=== PATIENT | female | born 1950 | race Caucasian/White ===

== ENCOUNTER 2022-03-05 09:41 | Inpatient (IN) ==
[2022-03-05] MEDS ORDERED: MoRPHine SULFATE 4 MG/ML 1 ML CARP\\VIAL IV PRN (09:47)
[2022-03-05] MEDS ORDERED: MoRPHine SULFATE 2 MG/ML CARP IV PRN ×2 (09:47→14:43)
--- NOTE | 2022-03-05 09:51 | Emergency Department Note ---
Impression & Plan Closed right hip fracture, Fall, Blood glucose elevated ED Provider Note NAME: ARTIE RENTERIA AGE: 71 SEX: F : 1950 ARRIVES VIA: Ambulance INFORMANT: Patient ED PROVIDER(S): Stanley Lopez DO CHIEF COMPLAINT: right hip pain HPI: Patient is a 71-year-old female who presents to the ER following a mechanical fall. She was up here visiting for a wedding. She was packing the car and tripped over uneven pavement and fell onto her right side. She did not hit her head or neck. She did not lose consciousness. She denies any chest pain, belly pain, or any other extremity pain other than the right hip. No tingling or numbness. Pain is a 6 out of 10. Significantly worsened with movement. ROS: See above HPI for pertinent positives & negatives. A total of 10 systems reviewed and were otherwise negative. PAST MEDICAL HISTORY:See Below PAST SURGICAL HISTORY:See Below FAMILY HISTORY:See Below SOCIAL HISTORY:See Below HOME MEDICATIONS:See Below ALLERGIES:See Below VITALS:See Below PHYSICAL EXAMINATION: GENERAL: alert, well appearing, well nourished, no distress, non-toxic HEAD: normal cephalic, atraumatic EYE EXAM: normal conjunctiva, PERRL and EOM's grossly intact OROPHARYNX: no exudate, no erythema, lips, buccal mucosa, and tongue normal and mucous membranes are moist NECK: supple, no nuchal rigidity, no adenopathy, non-tender CHEST: stable to compression anteriorly and posteriorly LUNGS: clear to auscultation. Normal chest wall mechanics HEART: no murmurs, S1 normal and S2 normal ABDOMEN: abdomen soft, non-tender, normo-active bowel sounds, no masses, no rebound or guarding. PELVIS: stable to compression anteriorly and posteriorly BACK: Back is symmetrical on inspection and there is no deformity, no midline tenderness, no CVA tenderness. UPPER EXTREMITIES: full active and passive range of motion of all joints without tenderness to palpation LOWER EXTREMITIES: No tenderness throughout palpation of the entire left lower extremity and full range of motion is intact. Right lower extremity DP and PT 2 out of 4. No tenderness over the ankle distal mid or proximal tib-fib. No tenderness throughout the knee. Does appear to be shortened and slightly externally rotated. No tenderness throughout the distal or mid femur. Tenderness over the proximal femur/pelvis. NEURO EXAM: Normal sensorium, cranial nerves II-XII grossly intact, normal speech, no gross weakness of arms. GCS: 15. MEDICAL DECISION MAKING: Patient is a 71-year-old female who presents ER following mechanical fall onto her right hip. She did not hit her head or neck. She denies any blood thinners. IV was established blood work was obtained. Labs show mild leukocytosis 11.6 thousand. No significant anemia. INR was unremarkable. BMP with a slightly elevated BUN and glucose. LFTs bilirubin was clean. UA was clean. Covid negative. X-rays of the hip and pelvis show right subcapital fracture. [facility] orthopedics. [facility]. Patient was given IV narcotics while in the ER. Triage Nursing notes reviewed. Limited review of prior medical records performed Vital Signs: reviewed and remarkable for no significant abnormalities Differential diagnosis: Differential diagnoses include major intracranial, cervical, spinal, thoracic, abdominal, pelvic and neurologic injury. Fracture, contusion, sprain, strain, laceration, abrasions included as well. ER treatment provided: See below Diagnostics interpreted by me: ECG: none Cardiac Monitoring: An order was placed for continuous cardiac monitoring. The monitor shows a rate of 82 with sinus rhythm. Laboratory studies: As stated above and show below. Imaging studies: X-rays the pelvis/right hip show hip fracture Consultation(s): Discussed with Linda from [facility] service for admission Procedures: none Critical Care: None Past Med/Surg History Medical History (Updated 03/05/22 @ 14:41 by Stanley Lopez DO) Closed right hip fracture History of DVT (deep vein thrombosis) HTN, goal below 140/90 Hyperlipidemia LDL goal <100 Obesity (BMI 30-39.9) Type 2 diabetes, HbA1c goal < 7% Surgical History (Updated 03/05/22 @ 13:03 by Augusta Daniel PA-C) H/O cataract removal with insertion of prosthetic lens Hx of tonsillectomy S/P breast biopsy S/P cardiac cath S/P colonoscopy Status post vein stripping Family History (Updated 03/05/22 @ 13:05 by Augusta Daniel PA-C) Father Coronary heart disease Stroke Mother Heart failure Social History Smoking Status: Never smoker Hx Alcohol Use: Yes Alcohol type: wine Hx Substance Use: No Preferred Language: Yoruba Communication Ability: Effective College Or University Business Manager Required: No Beliefs That Will Affect Care: None Current Living Situation: Alone Current Living Situation Comment: condo building Other Information That Helps Us Care for You: No Feels Safe at Home: Yes Safety Concerns: Feels Safe At This Time Assistive Devices: Glasses Allergies Allergies Allergy/AdvReac Type Severity Reaction Status Date / Time Penicillins Allergy Intermediate Hives Unverified 03/05/22 11:59 Home Meds Home Medications Medication Instructions Recorded Confirmed Lactobacillus acidophilus 1.5 mg 1.5 mg PO DAILY 03/05/22 03/05/22 (250 million cell) capsule (Probiotic Acidophilus) acetaminophen 650 mg 650 mg PO Q8H 03/05/22 03/05/22 tablet,extended release aspirin 81 mg tablet,delayed 81 mg PO HS 03/05/22 03/05/22 release calcium carb 300 mg-D3 800 1 tab PO QAM 03/05/22 03/05/22 unit-mag ox 25 mg-picture copyist 0.5 mg-vernell-Zn tablet (Caltrate + D3 Plus Minerals) colesevelam 625 mg tablet (WelChol) 625 mg PO QID 03/05/22 03/05/22 diltiazem HCl 240 mg 240 mg PO QAM 03/05/22 03/05/22 capsule,extended release 24 hr glimepiride 4 mg tablet 4 mg PO QAM 03/05/22 03/05/22 hydralazine 50 mg tablet 50 mg PO QID 03/05/22 03/05/22 losartan 50 mg-hydrochlorothiazide 1 tab PO QAM 03/05/22 03/05/22 12.5 mg tablet metformin 500 mg tablet,extended See Rx Instructions .ROUTE .COMPLEX 03/05/22 03/05/22 release 24 hr dpvkehqb-rhs-pyhdq acid 0.4 1 tab PO QAM 03/05/22 03/05/22 mg-lycopene 300 mcg-lutein 250 mcg tablet (Centrum Silver) omega-3 fatty acids 1 cap PO DAILY 03/05/22 03/05/22 pyridoxine (vitamin B6) 100 mg 100 mg PO QAM 03/05/22 03/05/22 tablet (Vitamin B-6) rosuvastatin 5 mg tablet 5 mg PO QAM 03/05/22 03/05/22 semaglutide 3 mg tablet (Rybelsus) 3 mg PO DAILYBB 03/05/22 03/05/22 vitamin B complex 1 tab PO QA 03/05/22 03/05/22 Results & Data (ED) Vital Signs Vital Signs - 24 hr 03/05/22 09:32 03/05/22 11:29 Temperature 36.8 C Temperature Source Oral Pulse Rate 78 Pulse Rate [Left] 93 H Pulse Rhythm Regular Pulse Rhythm [Left] Regular Pulse Strength Normal Pulse Strength [Left] Normal Respiratory Rate 18 18 Respiratory Effort / Characteristics Spontaneous Spontaneous Respiratory Depth Deep Normal Blood Pressure 183/90 H Blood Pressure [Left Arm] 128/90 Blood Pressure Mean 121 Blood Pressure Mean [Left Arm] 102 Blood Pressure Position Lying Blood Pressure Position [Left Arm] Lying Pulse Oximetry 98 98 Oxygen Delivery Method Room Air Room Air Sepsis Recent Fever Within 48 Hours No Sepsis New/Unexplained Change in Mental Status N/A Sepsis Action Taken by Nursing No Action Required Laboratory Data Result diagrams: 03/05/22 10:10 03/05/22 10:10 Lab Results 03/05/22 03/05/22 03/05/22 Range/Units 10:10 10:10 10:10 WBC 11.67 H (4.8-10.8) K/uL RBC 4.96 (4.2-5.4) M/uL Hgb 14.4 (12.0-16.0) g/dL Hct 43.0 (37-47) % MCV 86.7 (80-100) fL MCH 29.0 (25-34) pg MCHC 33.5 (32-36) g/dL RDW Std Deviation 43.4 (36.4-46.3) fL RDW Coeff of Salazar 13.8 (11.5-14.5) % Plt Count 305 (130-400) K/uL MPV 8.6 (7.4-10.4) fL Immature Gran % (Auto) 0.8 % Neut % (Auto) 81.1 % Lymph % (Auto) 11.0 % [place] % (Auto) 6.5 % Eos % (Auto) 0.4 % Baso % (Auto) 0.2 % Neut # (Auto) 9.47 H (1.4-6.5) K/uL Lymph # (Auto) 1.28 (1.2-3.4) K/uL [place] # (Auto) 0.76 H (0.11-0.59) K/uL Eos # (Auto) 0.05 (0-0.5) K/uL Baso # (Auto) 0.02 (0-0.2) K/uL Immature Gran # (Auto) 0.09 H (0.00-0.02) K/uL PT 10.9 (9.0-12.0) Seconds INR 1.0 (0.9-1.1) APTT 24.5 (21.0-31.0) Seconds PTT Ratio 0.9 Sodium 138 (136-145) mmol/L Potassium 3.6 (3.5-5.1) mmol/L Chloride 104 (98-107) mmol/L Carbon Dioxide 22 (21-32) mmol/L Anion Gap 12 H (3-11) BUN 25 H (6-23) mg/dl Creatinine 0.59 L (0.6-1.2) mg/dl Est Cr Clr Drug Dosing 96.1 ml/min Est GFR ( Amer) 107.6 ml/min Est GFR (Non-Af Amer) 92.9 ml/min BUN/Creatinine Ratio 42.4 H (10-20) Glucose 187 H (70-99(Fasting)) mg/dl Calcium 9.8 (8.5-10.1) mg/dl Total Bilirubin 0.5 (0.2-1.0) mg/dl AST 28 (13-39) U/L ALT 23 (7-52) U/L Alkaline Phosphatase 68 (34-104) U/L Total Protein 7.7 (6.0-8.3) gm/dl Albumin 4.8 (3.4-5.0) gm/dl Globulin 2.9 (2.5-4.0) gm/dl Albumin/Globulin Ratio 1.7 (0.9-2) Urine Color Urine Appearance (Clear) Urine pH (4.5-7.5) Ur Specific [place] (1.000-1.030) Urine Protein (Negative) Urine Glucose (UA) (Negative) Urine Ketones (Negative) Urine Blood (Negative) Urine Nitrite (Negative) Urine Bilirubin (Negative) Urine Urobilinogen (Negative) Ur Leukocyte Esterase (Negative) 03/05/22 Range/Units 11:45 WBC (4.8-10.8) K/uL RBC (4.2-5.4) M/uL Hgb (12.0-16.0) g/dL Hct (37-47) % MCV (80-100) fL MCH (25-34) pg MCHC (32-36) g/dL RDW Std Deviation (36.4-46.3) fL RDW Coeff of Salazar (11.5-14.5) % Plt Count (130-400) K/uL MPV (7.4-10.4) fL Immature Gran % (Auto) % Neut % (Auto) % Lymph % (Auto) % [place] % (Auto) % Eos % (Auto) % Baso % (Auto) % Neut # (Auto) (1.4-6.5) K/uL Lymph # (Auto) (1.2-3.4) K/uL [place] # (Auto) (0.11-0.59) K/uL Eos # (Auto) (0-0.5) K/uL Baso # (Auto) (0-0.2) K/uL Immature Gran # (Auto) (0.00-0.02) K/uL PT (9.0-12.0) Seconds INR (0.9-1.1) APTT (21.0-31.0) Seconds PTT Ratio Sodium (136-145) mmol/L Potassium (3.5-5.1) mmol/L Chloride (98-107) mmol/L Carbon Dioxide (21-32) mmol/L Anion Gap (3-11) BUN (6-23) mg/dl Creatinine (0.6-1.2) mg/dl Est Cr Clr Drug Dosing ml/min Est GFR ( Amer) ml/min Est GFR (Non-Af Amer) ml/min BUN/Creatinine Ratio (10-20) Glucose (70-99(Fasting)) mg/dl Calcium (8.5-10.1) mg/dl Total Bilirubin (0.2-1.0) mg/dl AST (13-39) U/L ALT (7-52) U/L Alkaline Phosphatase (34-104) U/L Total Protein (6.0-8.3) gm/dl Albumin (3.4-5.0) gm/dl Globulin (2.5-4.0) gm/dl Albumin/Globulin Ratio (0.9-2) Urine Color Yellow Urine Appearance Clear (Clear) Urine pH 5.5 (4.5-7.5) Ur Specific [place] 1.017 (1.000-1.030) Urine Protein Negative (Negative) Urine Glucose (UA) Negative (Negative) Urine Ketones 1+ H (Negative) Urine Blood Negative (Negative) Urine Nitrite Negative (Negative) Urine Bilirubin Negative (Negative) Urine Urobilinogen Negative (Negative) Ur Leukocyte Esterase Negative (Negative) Imaging Data Radiologist's Impression: Hip/Pelvis X-Ray 03/05/22 09:47 SERIAL VIEW PELVIS STUDY: 2 VIEWS RIGHT HIP CLINICAL HISTORY: Fall with right hip injury. FINDINGS: An AP portable view of the pelvis with AP and cross table lateral views of the right hip are obtained. No prior studies are available for comparison at the time of dictation. The skeletal structures are osteopenic. There is an impacted and mildly displaced subcapital fracture of the right proximal femur. No fracture is seen involving the left hip or the bony pelvis. Moderate joint space narrowing and arthritic change is seen in the hips. Degenerative sclerosis is noted in the sacroiliac joints. Advanced lumbosacral spondylosis is partially visualized. Soft tissue edema overlies the right hip. There is atherosclerotic calcification of the femoral arteries. IMPRESSION: Impacted and mildly displaced subcapital fracture of the right femur. Electronically signed by: Juan Alberto Garcia M.D. 03/05/2022 11:25 AM Discharge Plan Visit Data Chief Complaint: Fall ED Provider: Stanley Lopez Discharge Problem: Closed right hip fracture, Fall, Blood glucose elevated Patient Disposition: Admitted As Inpatient Discharge Instructions Interventions: ED Discharge Assessment Last Done: 03/05/22 13:41
[2022-03-05 10:29] LABS: Basophils # (auto) 0.02 K/uL (0-0.2); Basophils % (auto) 0.2 %; Eosinophils # (auto) 0.05 K/uL (0-0.5); Eosinophils % (auto) 0.4 %; Hemoglobin 14.4 g/dL (12.0-16.0); Immature Granulocytes # (auto) 0.09 K/uL (0.00-0.02); Immature Granulocytes % (auto) 0.8 %; Lymphocytes # (auto) 1.28 K/uL (1.2-3.4); Mean Corpuscular Hgb Conc 33.5 g/dL (32-36); Mean Corpuscular Volume 86.7 fL (80-100); Mean Platelet Volume 8.6 fL (7.4-10.4); Monocytes # (auto) 0.76 K/uL (0.11-0.59); Monocytes % (auto) 6.5 %; Neutrophils # (auto) 9.47 K/uL (1.4-6.5); Neutrophils % (auto) 81.1 %; Platelet Count 305 K/uL (130-400); RDW Coefficient of Variation 13.8 % (11.5-14.5); RDW Standard Deviation 43.4 fL (36.4-46.3); Red Blood Count 4.96 M/uL (4.2-5.4); White Blood Count 11.67 K/uL (4.8-10.8)
[2022-03-05 10:41] LABS: Partial Thromboplastin Ratio 0.9; Partial Thromboplastin Time 24.5 Seconds (21.0-31.0); Prothrombin Time 10.9 Seconds (9.0-12.0)
[2022-03-05 10:57] LABS: Albumin Globulin Ratio 1.7 (0.9-2); Albumin Level 4.8 gm/dl (3.4-5.0); BUN Creatinine Ratio 42.4 (10-20); Bilirubin,Total 0.5 mg/dl (0.2-1.0); Calcium 9.8 mg/dl (8.5-10.1); Creatinine Clr Calc Pharmacy 96.1 ml/min; Est GFR (African American) 107.6 ml/min; Est GFR (Non-African American) 92.9 ml/min; Globulin 2.9 gm/dl (2.5-4.0); Potassium 3.6 mmol/L (3.5-5.1); Total Protein 7.7 gm/dl (6.0-8.3)
--- NOTE | 2022-03-05 11:27 | XRay Report ---
SERIAL VIEW PELVIS STUDY: 2 VIEWS RIGHT HIP CLINICAL HISTORY: Fall with right hip injury. FINDINGS: An AP portable view of the pelvis with AP and cross table lateral views of the right hip ar e obtained. No prior studies are available for comparison at the time of dictation. The skeletal stru ctures are osteopenic. There is an impacted and mildly displaced subcapital fracture of the right pr oximal femur. No fracture is seen involving the left hip or the bony pelvis. Moderate joint space giovani rowing and arthritic change is seen in the hips. Degenerative sclerosis is noted in the sacroiliac alonso ints. Advanced lumbosacral spondylosis is partially visualized. Soft tissue edema overlies the right hip. There is atherosclerotic calcification of the femoral arteries. IMPRESSION: Impacted and mildly displaced subcapital fracture of the right femur. Electronically signed by: Juan Alberto Garcia M.D. 03/05/2022 11:25 AM
[2022-03-05 11:54] LABS: Appearance Urine Clear (Clear); Bilirubin Urine Negative (Negative); Blood Urine Negative (Negative); Color Urine Yellow; Glucose Urine UA Negative (Negative); Ketones Urine 1+ (Negative); Leukocyte Esterase Urine Negative (Negative); Nitrite Urine Negative (Negative); Protein Urine Negative (Negative); Specific Gravity Urine 1.017 (1.000-1.030); Urobilinogen Urine Negative (Negative); pH Urine 5.5 (4.5-7.5)
--- NOTE | 2022-03-05 13:09 | History & Physical Report ---
Date of Service March 05, 2022 Assessment & Plan (1) Closed right hip fracture: Plan: Patient with acute right hip fracture. XR completed showed impacted and mildly displaced right hip fx Admit to Med/Surg Consult Orthopedics Strict bedrest pending Orthopedic consult NPO for now pending eval Fall precautions Will need PT/OT, but pending surgical decision Pain management: Tylenol PRN mild pain Oxycodone 5 mg PO PRN moderate pain Morphine 2 mg IV PRN severe pain Zofran PRN nausea Bowel regimen PRN Monitor vitals closely. COVID Negative MRSA nasal swab (2) HTN, goal below 140/90: Plan: Continue home BP medications Monitor closely. (3) Type 2 diabetes, HbA1c goal < 7%: Plan: Hold PO DM meds Start insulin baseline and sliding scale Glucose checks Q4h for now due to NPO/surgical planning. DM diet Last A1C 8.3 02/03/2022 (4) Hyperlipidemia LDL goal <100: Plan: Continue rosuvastatin (5) Obesity (BMI 30-39.9): (6) DVT prophylaxis: Plan: SQ Heparin 5,000 Q8h pending surgical plan. Hold prior to surgery per Ortho plans SCDs Plan: I saw and examined the patient at bedside. I reviewed the chart and discussed t he case with Augusta SAEZ and agree with her documentation. In summary, this is a 71 year old female who presented to the ED today after a mechanical fall sustaining acute right hip fracture. States the pain medicine in ED helped but now hurting again during transfer to the floor. Afebrile, hemodynamically stable. AAOx3, eating lunch. Chest clear. Hear sounds normal. Abdomen normal. Extremities with no edema, no ecchymoses. Admit to inpatient, bed rest, ortho consult for surgery, pain management, bowel regimen. NPO after midnight for surgery tomorrow. Sc heparin for DVT prophylaxis until after midnight. Maintenance fluid in am. PT eval after surgery. Will need rehab. Rest per the note above. History of Present Illness Chief Complaint: Right hip fracture Primary Care Provider: NO PCP Patient is a 71 yo female with PMHx of DM type 2, HTN, Hyperlipidemia who presented to the ED via ambulance for concern of fall onto right hip this morning. She is from the [facility] but is in town for a wedding. She was packing the car when she stepped off of an uneven surface and fell onto her right hip. She was unable to stand/walk after the episode. She was transported to the ED and has since had XRay of the right hip which showed impacted and slightly displaced femur fx. This image was reviewed by me today. She was initially dizzy immediately after her fall, but no further dizziness. No LOC. No head injury. She caught herself slightly with her right arm but no injury or bruising. Right hip Pain is 5/10 now after dose of Morphine in the ED. She is comfortable on exam. She did take some of her medications this morning, but she did not take her glimepiride. She has not eaten yet today. Labs reviewed as well. Renal function stable. WBC count slightly elevated. Glucose 187. BP high on admission, improved with pain control. The patient's outpatient medical record was reviewed. PMHx, social hx, family hx, and surgical hx updated. Allergies Allergy/AdvReac Type Severity Reaction Status Date / Time Penicillins Allergy Intermediate Hives Verified 03/05/22 14:41 Home Medications Medication Instructions Recorded Confirmed Type Lactobacillus acidophilus 1.5 mg 1.5 mg PO DAILY 03/05/22 03/05/22 History (250 million cell) capsule (Probiotic Acidophilus) acetaminophen 650 mg 650 mg PO Q8H 03/05/22 03/05/22 History tablet,extended release aspirin 81 mg tablet,delayed 81 mg PO HS 03/05/22 03/05/22 History release calcium carb 300 mg-D3 800 1 tab PO QAM 03/05/22 03/05/22 History unit-mag ox 25 mg-copper roller handler printing 0.5 mg-vernell-Zn tablet (Caltrate + D3 Plus Minerals) colesevelam 625 mg tablet (WelChol) 625 mg PO QID 03/05/22 03/05/22 History diltiazem HCl 240 mg 240 mg PO QAM 03/05/22 03/05/22 History capsule,extended release 24 hr glimepiride 4 mg tablet 4 mg PO QAM 03/05/22 03/05/22 History hydralazine 50 mg tablet 50 mg PO QID 03/05/22 03/05/22 History losartan 50 mg-hydrochlorothiazide 1 tab PO QAM 03/05/22 03/05/22 History 12.5 mg tablet metformin 500 mg tablet,extended See Rx Instructions .ROUTE .COMPLEX 03/05/22 03/05/22 History release 24 hr cfteqrtf-ooh-vszws acid 0.4 1 tab PO QAM 03/05/22 03/05/22 History mg-lycopene 300 mcg-lutein 250 mcg tablet (Centrum Silver) omega-3 fatty acids 1 cap PO DAILY 03/05/22 03/05/22 History pyridoxine (vitamin B6) 100 mg 100 mg PO QAM 03/05/22 03/05/22 History tablet (Vitamin B-6) rosuvastatin 5 mg tablet 5 mg PO QAM 03/05/22 03/05/22 History semaglutide 3 mg tablet (Rybelsus) 3 mg PO DAILYBB 03/05/22 03/05/22 History vitamin B complex 1 tab PO QAM 03/05/22 03/05/22 History Past Med/Surg History Medical History (Updated 03/05/22 @ 14:41 by Stanley Lopez DO) Closed right hip fracture History of DVT (deep vein thrombosis) HTN, goal below 140/90 Hyperlipidemia LDL goal <100 Obesity (BMI 30-39.9) Type 2 diabetes, HbA1c goal < 7% Surgical History (Updated 03/05/22 @ 13:03 by Augusta Daniel PA-C) H/O cataract removal with insertion of prosthetic lens Hx of tonsillectomy S/P breast biopsy S/P cardiac cath S/P colonoscopy Status post vein stripping Family History (Updated 03/05/22 @ 13:05 by Augusta Daniel PA-C) Father Coronary heart disease Stroke Mother Heart failure Social History Smoking Status: Never smoker Hx Alcohol Use: Yes Alcohol type: wine Hx Substance Use: No Preferred Language: Frisian Communication Ability: Effective Ring Conductor Required: No Beliefs That Will Affect Care: None Current Living Situation: Alone Current Living Situation Comment: condo building Other Information That Helps Us Care for You: No Feels Safe at Home: Yes Safety Concerns: Feels Safe At This Time Assistive Devices: Glasses Review of Systems Review of Systems: All other systems reviewed and negative other than mentioned in HPI Physical Exam Constitutional: WD/WN, vitals as above comfortable; no acute distress Eyes: PERRL, conjunctivae normal, anicteric sclerae ENMT: external ear and nose normal, oropharynx normal Neck: trachea midline, no thyromegaly Respiratory: normal respiratory effort, lungs clear to auscultation Cardiovascular: Rate/Rhythm: regular rate and regular rhythm Heart Sounds: normal S1 and normal S2; no murmur Extremities: normal capillary refill (Pulses 2+ DP and 1+ PT B/L) and + edema (trace edema RLE) Gastrointestinal (Abdomen): normal bowel sounds, soft, nontender, no hepatosplenomegaly Skin: no rashes, warm and dry Results & Data Results & Data ([facility]) Vital Signs (Past 12 Hours) Vital Signs Temp Pulse Pulse Resp BP BP Pulse Ox 03/05/22 11:29 93 H 18 128/90 98 03/05/22 09:32 36.8 C 78 18 183/90 H 98 Laboratory Results Laboratory Results - last 24 hr 03/05/22 03/05/22 03/05/22 10:10 10:10 10:10 WBC 11.67 H RBC 4.96 Hgb 14.4 Hct 43.0 MCV 86.7 MCH 29.0 MCHC 33.5 RDW Std Deviation 43.4 RDW Coeff of Salazar 13.8 Plt Count 305 MPV 8.6 Immature Gran % (Auto) 0.8 Neut % (Auto) 81.1 Lymph % (Auto) 11.0 [place] % (Auto) 6.5 Eos % (Auto) 0.4 Baso % (Auto) 0.2 Neut # (Auto) 9.47 H Lymph # (Auto) 1.28 [place] # (Auto) 0.76 H Eos # (Auto) 0.05 Baso # (Auto) 0.02 Immature Gran # (Auto) 0.09 H PT 10.9 INR 1.0 APTT 24.5 PTT Ratio 0.9 Sodium 138 Potassium 3.6 Chloride 104 Carbon Dioxide 22 Anion Gap 12 H BUN 25 H Creatinine 0.59 L Est Cr Clr Drug Dosing 96.1 Est GFR ( Amer) 107.6 Est GFR (Non-Af Amer) 92.9 BUN/Creatinine Ratio 42.4 H Glucose 187 H Calcium 9.8 Total Bilirubin 0.5 AST 28 ALT 23 Alkaline Phosphatase 68 Total Protein 7.7 Albumin 4.8 Globulin 2.9 Albumin/Globulin Ratio 1.7 Urine Color Urine Appearance Urine pH Ur Specific [place] Urine Protein Urine Glucose (UA) Urine Ketones Urine Blood Urine Nitrite Urine Bilirubin Urine Urobilinogen Ur Leukocyte Esterase SARS-CoV-2, RNA, NAAT 03/05/22 03/05/22 11:45 Unknown WBC RBC Hgb Hct MCV MCH MCHC RDW Std Deviation RDW Coeff of Salazar Plt Count MPV Immature Gran % (Auto) Neut % (Auto) Lymph % (Auto) [place] % (Auto) Eos % (Auto) Baso % (Auto) Neut # (Auto) Lymph # (Auto) [place] # (Auto) Eos # (Auto) Baso # (Auto) Immature Gran # (Auto) PT INR APTT PTT Ratio Sodium Potassium Chloride Carbon Dioxide Anion Gap BUN Creatinine Est Cr Clr Drug Dosing Est GFR ( Amer) Est GFR (Non-Af Amer) BUN/Creatinine Ratio Glucose Calcium Total Bilirubin AST ALT Alkaline Phosphatase Total Protein Albumin Globulin Albumin/Globulin Ratio Urine Color Yellow Urine Appearance Clear Urine pH 5.5 Ur Specific [place] 1.017 Urine Protein Negative Urine Glucose (UA) Negative Urine Ketones 1+ H Urine Blood Negative Urine Nitrite Negative Urine Bilirubin Negative Urine Urobilinogen Negative Ur Leukocyte Esterase Negative SARS-CoV-2, RNA, NAAT NEGATIVE Diagnostic Findings RIGHT HIP XR: IMPRESSION: Impacted and mildly displaced subcapital fracture of the right femur. Code Status & VTE Plan VTE Prophylaxis Plan VTE Prophylaxis will be ordered: Yes
[2022-03-05] MEDS ORDERED: MAGNESIUM HYDROXIDE SUSP 30 ML UDC PO PRN (14:10)
[2022-03-05] MEDS ORDERED: GLUCOSE 40% GEL 15 GM TUBE PO PRN (14:10)
[2022-03-05] MEDS ORDERED: ACETAMINOPHEN 325 MG TAB PO PRN (14:10)
[2022-03-05] MEDS ORDERED: POLYETHYLENE (MIRALAX) 17 GM PACK PO PRN (14:10)
[2022-03-05] MEDS ORDERED: CARBOHYDRATES FOR HYPOGLYCEMIA PO PRN (14:10)
[2022-03-05] MEDS ORDERED: NALOXONE HCL 0.4 MG/1 ML VIAL/CARP IV PRN (14:10)
[2022-03-05] MEDS ORDERED: GLUCAGON FOR INJ 1 MG VIAL SQ PRN (14:10)
[2022-03-05] MEDS ORDERED: GLUCOSE 10 TABS/TUBE PO PRN (14:10)
[2022-03-05] MEDS ORDERED: ONDANSETRON INJ 2 MG/ML 2 ML VIAL IV PRN (14:10)
[2022-03-05] MEDS ORDERED: bisacodyL 10 MG SUPP PR PRN (14:10)
[2022-03-05] MEDS ORDERED: DEXTROSE 50% 50 ML SYRINGE IV PRN (14:10)
[2022-03-05] MEDS ORDERED: DC ALL PREVIOUSLY ORDERED DIABETES MEDS ONE (14:10)
[2022-03-05] MEDS ORDERED: MoRPHine SULFATE IR 15 MG TAB (IMMEDIATE RELEASE) PO PRN (14:10)
[2022-03-05] MEDS ORDERED: oxyCODONE HCL IR 5 MG TAB (IMMEDIATE RELEASE) PO PRN (14:35)
[2022-03-05] MEDS: HEPARIN SOD 5,000 UNIT/0.5 ML VIAL SQ SCH ×2 (14:42→21:24)
[2022-03-05] MEDS: oxyCODONE HCL IR 5 MG TAB (IMMEDIATE RELEASE) PO PRN ×2 (14:47→22:49)
[2022-03-05] MEDS: hydrALAZINE TAB 50 MG TAB PO SCH ×3 (15:46→21:24)
[2022-03-05] MEDS ORDERED: MoRPHine SULFATE 2 MG/ML CARP IV STA (15:53)
--- NOTE | 2022-03-05 16:39 | Anesthesiology Consultation ---
Date of Service March 05, 2022 Assessment & Plan (1) Encounter for pre-operative examination: Chart Review Chart Review: Acceptable Risk for Surgery and Patient NOT seen in Pre Admission Testing Consults Requested none History Height/Weight Height: 5 ft 4 in Weight: 95.254 kg Allergies Allergy/AdvReac Type Severity Reaction Status Date / Time Penicillins Allergy Intermediate Hives Verified 03/05/22 14:41 Medications Home Medications Medication Instructions Recorded Confirmed Last Taken Lactobacillus acidophilus 1.5 mg 1.5 mg PO DAILY 03/05/22 03/05/22 Unknown (250 million cell) capsule (Probiotic Acidophilus) acetaminophen 650 mg 650 mg PO Q8H 03/05/22 03/05/22 03/05/22 07:30 tablet,extended release 650 mg aspirin 81 mg tablet,delayed 81 mg PO HS 03/05/22 03/05/22 03/04/22 release calcium carb 300 mg-D3 800 1 tab PO QAM 03/05/22 03/05/22 03/04/22 unit-mag ox 25 mg-manager copy 0.5 mg-vernell-Zn tablet (Caltrate + D3 Plus Minerals) colesevelam 625 mg tablet (WelChol) 625 mg PO QID 03/05/22 03/05/22 03/04/22 diltiazem HCl 240 mg 240 mg PO QAM 03/05/22 03/05/22 03/05/22 capsule,extended release 24 hr glimepiride 4 mg tablet 4 mg PO QAM 03/05/22 03/05/22 03/04/22 hydralazine 50 mg tablet 50 mg PO QID 03/05/22 03/05/22 03/05/22 losartan 50 mg-hydrochlorothiazide 1 tab PO QAM 03/05/22 03/05/22 03/04/22 12.5 mg tablet metformin 500 mg tablet,extended See Rx Instructions .ROUTE .COMPLEX 03/05/22 03/05/22 03/05/22 release 24 hr lqusrdvb-acq-lajpw acid 0.4 1 tab PO QAM 03/05/22 03/05/22 03/04/22 mg-lycopene 300 mcg-lutein 250 mcg tablet (Centrum Silver) omega-3 fatty acids 1 cap PO DAILY 03/05/22 03/05/22 Unknown pyridoxine (vitamin B6) 100 mg 100 mg PO QAM 03/05/22 03/05/22 03/05/22 tablet (Vitamin B-6) rosuvastatin 5 mg tablet 5 mg PO QAM 03/05/22 03/05/22 03/04/22 semaglutide 3 mg tablet (Rybelsus) 3 mg PO DAILYBB 03/05/22 03/05/22 03/05/22 06:00 vitamin B complex 1 tab PO QAM 03/05/22 03/05/22 03/05/22 Active Medications Generic Name Dose Route Start Last Admin Trade Name Freq PRN Reason Stop Dose Admin Heparin Sodium (Porcine) 5,000 units 03/05/22 14:10 03/05/22 14:42 Heparin Sod 5,000 Unit/0.5 Ml Vial SQ 04/04/22 14:09 Not Given Q8 CHINO Hydralazine HCl 50 mg 03/05/22 14:30 03/05/22 15:46 Hydralazine Tab 50 Mg Tab PO 04/04/22 14:29 50 mg QID CHINO Administration Miscellaneous 1 ea 03/05/22 16:00 03/05/22 16:29 *Colesevelam [Welchol] 625 Mg*Order Awaiting Action N/A 04/04/22 15:59 Not Given QS CHINO Oxycodone HCl 5 mg 03/05/22 14:10 03/05/22 14:47 Oxycodone Hcl Ir 5 Mg Tab (Immediate Release) PO 03/19/22 14:09 5 mg Q4H PRN Administration MODERATE Pain (4,5,6) & Pre PT Past Medical History Medical History Closed right hip fracture History of DVT (deep vein thrombosis) HTN, goal below 140/90 Hyperlipidemia LDL goal <100 Obesity (BMI 30-39.9) Type 2 diabetes, HbA1c goal < 7% Past Family History Family History Father Coronary heart disease Stroke Mother Heart failure Past Surgical History Surgical History H/O cataract removal with insertion of prosthetic lens Hx of tonsillectomy S/P breast biopsy S/P cardiac cath S/P colonoscopy Status post vein stripping Social History Smoking Status: Never smoker Hx Alcohol Use: Yes Alcohol type: wine alcohol intake frequency: holidays/special occasions only Hx Substance Use: No substance use type: does not use Physical Exam Vital Signs Last Vital Signs Temp 36.5 C 03/05/22 14:11 Pulse 88 03/05/22 14:11 Resp 18 03/05/22 14:11 BP 174/89 H 03/05/22 14:11 Pulse Ox 94 03/05/22 14:11 Testing Laboratory Results 03/05/22 10:10 03/05/22 10:10 PT 10.9 Seconds (9.0-12.0) 03/05/22 10:10 INR 1.0 (0.9-1.1) 03/05/22 10:10 APTT 24.5 Seconds (21.0-31.0) 03/05/22 10:10 Urine Color Yellow 03/05/22 11:45 Urine Appearance Clear (Clear) 03/05/22 11:45 Urine pH 5.5 (4.5-7.5) 03/05/22 11:45 Ur Specific [place] 1.017 (1.000-1.030) 03/05/22 11:45 Urine Protein Negative (Negative) 03/05/22 11:45 Urine Glucose (UA) Negative (Negative) 03/05/22 11:45 Urine Ketones 1+ (Negative) H 03/05/22 11:45 Urine Nitrite Negative (Negative) 03/05/22 11:45 Ur Leukocyte Esterase Negative (Negative) 03/05/22 11:45 03/05/22 14:57 POC Glucose 154 H Electrocardiogram Date: 03/05/22 Findings: + NSR @ (99) and + RBBB left axis deviation, inferior infarct, age undetermined
[2022-03-05] MEDS: INSULIN ASPART PER UNIT SC SCH ×2 (18:05→21:23)
[2022-03-05] MEDS: DOCUSATE SODIUM/SENNA 50/8.6MG TAB PO SCH (19:56)
[2022-03-05] MEDS: MoRPHine SULFATE 4 MG/ML 1 ML CARP\\VIAL IV PRN (19:58)
[2022-03-05] MEDS: INSULIN GLARGINE SOLOSTAR 100 UNITS/ML 3 ML PEN SC SCH (21:23)
[2022-03-06] MEDS: oxyCODONE HCL IR 5 MG TAB (IMMEDIATE RELEASE) PO PRN (03:43)
[2022-03-06] MEDS ORDERED: SODIUM CHLORIDE 0.9% 1000ML 1,000 ML IV SCH (05:00)
[2022-03-06 07:07] LABS: Hematocrit (blood only) 37.9 % (37-47); Hemoglobin 12.9 g/dL (12.0-16.0); Mean Corpuscular Hemoglobin 29.5 pg (25-34); Mean Corpuscular Volume 86.5 fL (80-100); Mean Platelet Volume 8.7 fL (7.4-10.4); Platelet Count 273 K/uL (130-400); RDW Coefficient of Variation 13.9 % (11.5-14.5); RDW Standard Deviation 43.6 fL (36.4-46.3); Red Blood Count 4.38 M/uL (4.2-5.4)
[2022-03-06 07:35] LABS: Troponin I < 0.03 ng/ml (0-0.04)
[2022-03-06 07:37] LABS: Anion Gap 10 (3-11); BUN Creatinine Ratio 40.9 (10-20); Blood Urea Nitrogen 18 mg/dl (6-23); Calcium 8.7 mg/dl (8.5-10.1); Carbon Dioxide 23 mmol/L (21-32); Chloride 105 mmol/L (98-107); Creatinine Clr Calc Pharmacy 133.2 ml/min; Est GFR (African American) 118.5 ml/min; Est GFR (Non-African American) 102.3 ml/min; Glucose 157 mg/dl (70-99(Fasting)); Potassium 3.2 mmol/L (3.5-5.1); Sodium 138 mmol/L (136-145)
[2022-03-06] MEDS: MoRPHine SULFATE 4 MG/ML 1 ML CARP\\VIAL IV PRN ×2 (07:43→12:21)
[2022-03-06] MEDS: CEROVITE ADV FORMULA TAB PO SCH (07:49)
[2022-03-06] MEDS: ADVANCED PROBIOTIC 1250 MG CAPSULE PO SCH (07:49)
[2022-03-06] MEDS: ROSUVASTATIN CALCIUM 5 MG TAB PO SCH (07:50)
[2022-03-06] MEDS: hydrALAZINE TAB 50 MG TAB PO SCH ×4 (07:50→20:47)
[2022-03-06] MEDS: dilTIAZem HCL 240 MG CAPCR PO SCH (07:50)
[2022-03-06] MEDS: LOSARTAN/HCTZ 50/12.5MG TAB PO SCH (07:50)
[2022-03-06] MEDS: INSULIN ASPART PER UNIT SC SCH ×4 (07:51→20:47)
[2022-03-06] MEDS: INSULIN GLARGINE SOLOSTAR 100 UNITS/ML 3 ML PEN SC SCH ×2 (07:58→20:48)
[2022-03-06] MEDS ORDERED: POTASSIUM CHLORIDE CRTAB 20 MEQ TABCR PO ONE (08:50)
[2022-03-06] MEDS ORDERED: LACTOBACILLUS ACIDOPHILUS 1.5 MG PO SCH (09:00)
--- NOTE | 2022-03-06 11:03 | Cardiology Consultation ---
Date of Consultation March 06, 2022 Assessment & Plan (1) Closed right hip fracture: Due to mechanical fall, planning on surgical repair today (2) RBBB: NSR with RBBB seen on yesterday's EKG. No RBBB on today's. No previous EKGs available to compare. Patient currently asymptomatic. Denied any prior cardiac complaints. Trops negative. Possible LVH ? inferior/lateral abnormalities could be due to lead position due to breast tissue. Given lack of symptoms and negative trop will treat conservatively at this time. 1. Echocardiogram ordered to reassess structural heart as well as LV systolic function 2. Future recommendations pending results. 3. Replace electrolytes as necessary. (3) HTN, goal below 140/90: Blood pressure elevated above goal. Patient is having right hip pain. Will not make changes to her home medications at this time. Case discussed with Dr. Way Supervising Physician Co-Signing Physician Notes Patient seen and examined with TASHA Hutson. Agree with findings and assessment as above. Echocardiogram reveals normal LV systolic function with mild aortic stenosis. Pt would be a low risk for adverse perioperative cardiovascular event with risk approximately less than 1%. No further cardiac testing or intervention would further lower that risk. She states that she understands, she is accepting of that risk and would wish to proceed. No need to delay from a cardiac standpoint. History of Present Illness Reason for Consultation: Abnormal EKG Requesting Physician: Maryanne Watsonist Attending Physician: Juan Larsen MD History of Present Illness 71 year old female who resides in [place] and was in town due to a wedding presented to ED because of a fall resulting in right hip fracture. Patient states fall was due to tripping- she denied any dizziness prior, but did feel light headed after the event. No chest pain, shortness of breath, or palpitations. She has been feeling well since admission- planning on surgery today. EKG done on admission showed ST with a RBBB. On repeat RBBB resolved. Possible LVH. She carries a history of DM2, HTN, HLD. She has no known cardiac disease. States that she had a heart catheterization in 12/2001 due to left arm pain, per the patient- findings were unremarkable. Echo done in 2019 due to ? murmur showed aortic sclerosis without stenosis. Tele: SR 90s Today the patient is sitting up in bed resting comfortably. Denied any cardiac complaints. No concerns regarding chest pain, shortness of breath, palpitations, or syncope. Denied any functional decline. Normally active. Allergies Allergy/AdvReac Type Severity Reaction Status Date / Time Penicillins Allergy Intermediate Hives Verified 03/05/22 14:41 Home Medications Medication Instructions Recorded Confirmed Type Lactobacillus acidophilus 1.5 mg 1.5 mg PO DAILY 03/05/22 03/05/22 History (250 million cell) capsule (Probiotic Acidophilus) acetaminophen 650 mg 650 mg PO Q8H 03/05/22 03/05/22 History tablet,extended release aspirin 81 mg tablet,delayed 81 mg PO HS 03/05/22 03/05/22 History release calcium carb 300 mg-D3 800 1 tab PO QAM 03/05/22 03/05/22 History unit-mag ox 25 mg-type copyist 0.5 mg-vernell-Zn tablet (Caltrate + D3 Plus Minerals) colesevelam 625 mg tablet (WelChol) 625 mg PO QID 03/05/22 03/05/22 History diltiazem HCl 240 mg 240 mg PO QAM 03/05/22 03/05/22 History capsule,extended release 24 hr glimepiride 4 mg tablet 4 mg PO QAM 03/05/22 03/05/22 History hydralazine 50 mg tablet 50 mg PO QID 03/05/22 03/05/22 History losartan 50 mg-hydrochlorothiazide 1 tab PO QAM 03/05/22 03/05/22 History 12.5 mg tablet metformin 500 mg tablet,extended See Rx Instructions .ROUTE .COMPLEX 03/05/22 03/05/22 History release 24 hr cvtdbbos-uli-hirsq acid 0.4 1 tab PO QAM 03/05/22 03/05/22 History mg-lycopene 300 mcg-lutein 250 mcg tablet (Centrum Silver) omega-3 fatty acids 1 cap PO DAILY 03/05/22 03/05/22 History pyridoxine (vitamin B6) 100 mg 100 mg PO QAM 03/05/22 03/05/22 History tablet (Vitamin B-6) rosuvastatin 5 mg tablet 5 mg PO QAM 03/05/22 03/05/22 History semaglutide 3 mg tablet (Rybelsus) 3 mg PO DAILYBB 03/05/22 03/05/22 History vitamin B complex 1 tab PO QAM 03/05/22 03/05/22 History Patient History Medical History Closed right hip fracture History of DVT (deep vein thrombosis) HTN, goal below 140/90 Hyperlipidemia LDL goal <100 Obesity (BMI 30-39.9) Type 2 diabetes, HbA1c goal < 7% Surgical History H/O cataract removal with insertion of prosthetic lens Hx of tonsillectomy S/P breast biopsy S/P cardiac cath S/P colonoscopy Status post vein stripping Family History Father Coronary heart disease Stroke Mother Heart failure Social History Smoking Status: Never smoker Hx Alcohol Use: Yes Alcohol type: wine Hx Substance Use: No Preferred Language: Hungarian Communication Ability: Effective Supervisory Air Intercept Controller Required: No Beliefs That Will Affect Care: None marital status: / Current Living Situation: Alone Current Living Situation Comment: condo building Other Information That Helps Us Care for You: No Feels Safe at Home: Yes Safety Concerns: Feels Safe At This Time Assistive Devices: None Review of Systems Review of Systems: All systems reviewed & are unremarkable except as noted in HPI & below Physical Exam Physical Exam: General: No acute distress. A+Ox3. HEENT: Normocephalic. Atraumatic. Conjunctiva and sclera clear. NECK: No carotid bruits. No JVD. Carotid upstrokes are brisk. Heart: RRR. S1 and S2 noted without murmur, rubs, gallops. PMI non displaced. Lungs: Clear to auscultation. No wheezes, rhonchi, rales. Abdomen: Normal bowel sounds. Soft. Nontender. No masses or organomegaly. No abdominal bruits. Extremities: No edema. No clubbing or cyanosis. Pulses: radial=2/4, posterior tibial=2/4, dorsalis pedis = 2/4. NEURO: No focal deficits. PSYCH: Normal. Results & Data ([facility]) Vital Signs (Past 12 Hours) Vital Signs Temp Pulse Pulse Resp BP Pulse Ox 03/06/22 07:29 97 H 03/06/22 06:34 37.2 C 97 H 16 158/72 H 92 03/06/22 04:15 36.7 C 72 18 145/72 H 96 03/05/22 23:18 37.2 C 104 H 18 135/69 93 Laboratory Results Cardiac Enzymes 03/06/22 Range/Units 06:17 Troponin I < 0.03 (0-0.04) ng/ml CBC 03/06/22 Range/Units 06:17 WBC 12.80 H (4.8-10.8) K/uL RBC 4.38 (4.2-5.4) M/uL Hgb 12.9 (12.0-16.0) g/dL Hct 37.9 (37-47) % Plt Count 273 (130-400) K/uL Comprehensive Metabolic Panel 03/06/22 Range/Units 06:17 Sodium 138 (136-145) mmol/L Potassium 3.2 L (3.5-5.1) mmol/L Chloride 105 (98-107) mmol/L Carbon Dioxide 23 (21-32) mmol/L BUN 18 (6-23) mg/dl Creatinine 0.44 L (0.6-1.2) mg/dl Glucose 157 H (70-99(Fasting)) mg/dl Calcium 8.7 (8.5-10.1) mg/dl Intake and Output 03/05/22 03/06/22 03/06/22 22:59 06:59 14:59 Output Total 1200 / 1700 500 / 1700 Balance -1200 / -1700 -500 / -1700 Output: Urine 200 / 200 Urine Amount (Catheter) 1200 / 1500 300 / 1500 Gonzalez/Indwelling 1200 / 1500 300 / 1500 Other: Other Intake Source NPO Weight 95.254 kg Diagnostic Findings Echo 03/06/2022 PENDING Echo 2018 The left ventricular systolic function is normal. Qualitative LV ejection Fraction = 60-65%. The left ventricular diastolic function is mildly abnormal (grade I). No LV segmental wall motion abnormalities. The right ventricular systolic function is normal as assessed by tricuspid annular plane systolic excursion (TAPSE) (normal >1.7 cm). Aortic sclerosis, overall normal valvular function. No prior report for comparison. Technically difficult study. (1) Closed right hip fracture Encounter type: initial encounter Qualified Code(s): S72.001A - Fracture of unspecified part of neck of right femur, initial encounter for closed fracture
[2022-03-06] MEDS ORDERED: MIDAZOLAM HCL 1 MG/ML 2ML VIAL ONE (12:03)
[2022-03-06] MEDS ORDERED: PROPOFOL IV EMULSION 10 MG/ML 20 ML VIAL IV ONE ×3 (12:03→17:58)
[2022-03-06] MEDS ORDERED: LIDOCAINE 2% 2 ML VIAL/AMP(20MG/ML) INFIL ONE (12:03)
[2022-03-06] MEDS ORDERED: PHENYLEPHRINE 100MCG/ML 5ML SYR ONE (12:03)
[2022-03-06] MEDS ORDERED: fentaNYL citrate 100 MCG/2 ML VIAL ONE (12:03)
[2022-03-06] MEDS ORDERED: BUPIVACAINE 0.5 % 5 MG/1 ML PF 10ML VIAL ONE (12:12)
--- NOTE | 2022-03-06 12:50 | Orthopedic Consultation ---
Date of Consultation March 06, 2022 Assessment & Plan (1) Displaced fracture of right femoral neck: Schedule a right hip bipolar hemiarthroplasty for 03/06/2022. All potential risks, benefits, complications, alternatives, and rehab have been discussed with the patient and she wishes to proceed. Consent was placed on the front of the chart. The patient has a history of DVT so Lovenox or Eliquis may be good options for postoperative DVT prophylaxis. We will continue to follow the patient postoperatively. History of Present Illness Reason for Consultation: Right hip pain Attending Physician: Juan Larsen MD History of Present Illness This is a patient who was in the area for a wedding. She was packing her car and sustained a fall. She has significant pain in the right hip and an inability to ambulate. She was brought to the emergency room where x-rays noted a right hip fracture. She was admitted and is now being set up for surgical treatment. Allergies Allergy/AdvReac Type Severity Reaction Status Date / Time Penicillins Allergy Intermediate Hives Verified 03/05/22 14:41 Home Medications Medication Instructions Recorded Confirmed Type Lactobacillus acidophilus 1.5 mg 1.5 mg PO DAILY 03/05/22 03/05/22 History (250 million cell) capsule (Probiotic Acidophilus) acetaminophen 650 mg 650 mg PO Q8H 03/05/22 03/05/22 History tablet,extended release aspirin 81 mg tablet,delayed 81 mg PO HS 03/05/22 03/05/22 History release calcium carb 300 mg-D3 800 1 tab PO QAM 03/05/22 03/05/22 History unit-mag ox 25 mg-manager endoscopy 0.5 mg-vernell-Zn tablet (Caltrate + D3 Plus Minerals) colesevelam 625 mg tablet (WelChol) 625 mg PO QID 03/05/22 03/05/22 History diltiazem HCl 240 mg 240 mg PO QAM 03/05/22 03/05/22 History capsule,extended release 24 hr glimepiride 4 mg tablet 4 mg PO QAM 03/05/22 03/05/22 History hydralazine 50 mg tablet 50 mg PO QID 03/05/22 03/05/22 History losartan 50 mg-hydrochlorothiazide 1 tab PO QAM 03/05/22 03/05/22 History 12.5 mg tablet metformin 500 mg tablet,extended See Rx Instructions .ROUTE .COMPLEX 03/05/22 03/05/22 History release 24 hr axlmqgvp-gns-ppuwn acid 0.4 1 tab PO QAM 03/05/22 03/05/22 History mg-lycopene 300 mcg-lutein 250 mcg tablet (Centrum Silver) omega-3 fatty acids 1 cap PO DAILY 03/05/22 03/05/22 History pyridoxine (vitamin B6) 100 mg 100 mg PO QAM 03/05/22 03/05/22 History tablet (Vitamin B-6) rosuvastatin 5 mg tablet 5 mg PO QAM 03/05/22 03/05/22 History semaglutide 3 mg tablet (Rybelsus) 3 mg PO DAILYBB 03/05/22 03/05/22 History vitamin B complex 1 tab PO QAM 03/05/22 03/05/22 History Patient History Medical History Closed right hip fracture History of DVT (deep vein thrombosis) HTN, goal below 140/90 Hyperlipidemia LDL goal <100 Obesity (BMI 30-39.9) Type 2 diabetes, HbA1c goal < 7% Surgical History H/O cataract removal with insertion of prosthetic lens Hx of tonsillectomy S/P breast biopsy S/P cardiac cath S/P colonoscopy Status post vein stripping Family History Father Coronary heart disease Stroke Mother Heart failure Social History Smoking Status: Never smoker Hx Alcohol Use: Yes Alcohol type: wine Hx Substance Use: No Preferred Language: Kinyarwanda Communication Ability: Effective Air And Water Tester Required: No Beliefs That Will Affect Care: None marital status: / Current Living Situation: Alone Current Living Situation Comment: condo building Other Information That Helps Us Care for You: No Feels Safe at Home: Yes Safety Concerns: Feels Safe At This Time Assistive Devices: None Physical Exam Constitutional: well developed and well nourished; no acute distress ENMT: external ear and nose normal, oropharynx normal Neck: trachea midline Respiratory: normal respiratory effort, lungs clear to auscultation Cardiovascular: Rate/Rhythm: regular rate and regular rhythm Gastrointestinal (Abdomen): normal bowel sounds, soft, nontender, no hepatosplenomegaly Musculoskeletal: Hip: + limited ROM of hip (Right), + joint line tenderness (Right hip/thigh) and + log roll test positive (Right); no skin erythema and no ecchymosis Skin: no rashes, warm and dry Neurologic: normal touch/pain/proprioception Psychiatric: A+Ox3, euthymic affect Speech: normal rate/rhythm/volume of speech Results & Data ([facility]) Vital Signs (Past 12 Hours) Vital Signs Temp Pulse Pulse Resp BP Pulse Ox 03/06/22 10:56 37.0 C 94 H 20 150/81 H 92 03/06/22 07:29 97 H 03/06/22 06:34 37.2 C 97 H 16 158/72 H 92 03/06/22 04:15 36.7 C 72 18 145/72 H 96 Diagnostic Findings Pelvis x-ray: Displaced right femoral neck fracture.
--- NOTE | 2022-03-06 13:34 | Hospitalist Progress Note ---
Date of Service March 06, 2022 Assessment & Plan (1) Closed right hip fracture: Plan: Acute Right Hip Fracture X ray:Impacted and mildly displaced subcapital fracture of the right femur. Appreciate Orthopedics Input Fall precautions PT/OT when appropriate Pain Control Bowel regimen to prevent constipation (2) HTN, goal below 140/90: Plan: BP slightly elevated due to pain Continue Cardizem, Hyzaar, Hydralazine Monitor (3) Type 2 diabetes, HbA1c goal < 7%: Plan: HbA1C 8.3 02/03/2022 Hold PO meds Continue Insulin basal and sliding scale Monitor BGs (4) Hyperlipidemia LDL goal <100: Plan: Continue rosuvastatin (5) Obesity (BMI 30-39.9): (6) DVT prophylaxis: Plan: SQ Heparin--DCed SCDs Admission and Anticipated Discharge Date Admission Date: March 05, 2022 Subjective Patient is seen and examined at bedside States having right hip pain Denies any chest pain, dyspnea, dizziness, nausea, abd pain Offers no other complaints Review of Systems Review of Systems: All systems reviewed & are unremarkable except as noted in Subjective Physical Exam Physical Exam: Physical Exam: Vitals signs as noted above General Appearance:Obese, no apparent distress Head: normocephalic, Atraumatic Eyes: normal inspection, EOMI Neck: supple, Trachea midline Respiratory/Chest: Normal breath sounds, CTA, No accessory muscle use Cardiovascular: S1, S2, + murmur Abdomen/GI:Soft, Non tender, Bowel sounds present Extremities/Musculoskeletal:normal inspection, R hip tender, decreased ROM due to Pain, no edema Neurologic/Psych:AAOX3, grossly no focal neurological deficits Skin: normal color, warm Results & Data Results & Data ([facility]) Vital Signs (Past 12 Hours) Vital Signs Temp Pulse Pulse Resp BP Pulse Ox 03/06/22 10:56 37.0 C 94 H 20 150/81 H 92 03/06/22 07:29 97 H 03/06/22 06:34 37.2 C 97 H 16 158/72 H 92 03/06/22 04:15 36.7 C 72 18 145/72 H 96 Laboratory Results Short CBC 03/06/22 Range/Units 06:17 WBC 12.80 H (4.8-10.8) K/uL Hgb 12.9 (12.0-16.0) g/dL Hct 37.9 (37-47) % Plt Count 273 (130-400) K/uL BMP 03/06/22 06:17 Sodium 138 Potassium 3.2 L Chloride 105 Carbon Dioxide 23 BUN 18 Creatinine 0.44 L Glucose 157 H Calcium 8.7 Cardiac Enzymes 03/06/22 Range/Units 06:17 Troponin I < 0.03 (0-0.04) ng/ml (1) Closed right hip fracture Encounter type: initial encounter Qualified Code(s): S72.001A - Fracture of unspecified part of neck of right femur, initial encounter for closed fracture
[2022-03-06] MEDS ORDERED: ceFAZolin 2,000 MG/15 ML IV PUSH IV ONE (16:28)
--- NOTE | 2022-03-06 16:28 | History & Physical Bridge Note ---
Date of Service March 06, 2022 History & Physical Bridge Note I have examined the patient, reviewed the History & Physical and in the interval since the performance of the History & Physical I have noted the following changes of clinical significance: no changes noted
[2022-03-06] MEDS ORDERED: ceFAZolin 2000MG 2,000 MG/15 ML SYR IV ONE (16:30)
[2022-03-06] MEDS ORDERED: PROMETHAZINE HCL 6.25 MG in SODIUM CHLORIDE 0.9% 50 ML IV PRN (16:32)
[2022-03-06] MEDS ORDERED: ONDANSETRON INJ 2 MG/ML 2 ML VIAL IV PRN ×2 (16:32→19:54)
[2022-03-06] MEDS ORDERED: ATROPINE SULFATE 0.1 MG/ML 10ML SYR IV PRN (16:32)
[2022-03-06] MEDS ORDERED: ePHEDrine sulfate 50 MG/ML AMP IV PRN (16:32)
[2022-03-06] MEDS ORDERED: fentaNYL citrate 100 MCG/2 ML VIAL IV PRN (16:32)
[2022-03-06] MEDS ORDERED: ROPIVACAINE 0.5% HCL/PF 150 MG, BUPIVACAINE 0.75% MPF 20 ML, EPINEPHrine 0.15 MG, Ketor... INFIL SCH (16:45)
--- NOTE | 2022-03-06 19:02 | Post Operative Brief Note ---
Immediate Post Op Note v1 Date of Surgery March 06, 2022 Pre & Post Diagnosis Operation Date: 03/06/22 07:50 Pre-Op Diagnosis: Displaced fracture of right femoral neck Post-Op Diagnosis: Displaced fracture of right femoral neck I identified the patient and participated in the time-out.: Yes Procedure Operation Date: 03/06/22 07:50 Actual Procedures p Right Hip Hemiarthroplasty with press-fit [place] size 7 V-40 taper Accolade 2 stem, [place] L fit V40 femoral head 26 mm x -3 mm, UHR bipolar 47 mm x 26 mm inner diameter. Boris Granger DO Surgeon Boris Granger DO Inflated Pad Buffer Simon Tolentino PA-C Estimated Blood Loss 20 Findings Consistent with Post-Op Diagnosis Specimens Bone and tissue right hip Drains Gonzalez Catheter (Present upon arrival to operating room. Urine output measured by anesthesia throughout case.) and Hemovac Drain (Dual lumen) Anesthesia Type MAC Spinal Regional Complications none Disposition Accompanied Patient To Recovery: No
--- NOTE | 2022-03-06 19:18 | Anesthesiology Progress Note ---
Date of Service March 06, 2022 Anesthesia Post Procedure Vital Signs Vital Signs: Temp Pulse Pulse Pulse Resp BP Pulse Ox 03/06/22 15:58 37.3 C 105 H 20 164/69 H 92 03/06/22 15:51 94 03/06/22 15:45 93 H 03/06/22 15:35 36.8 C 102 H 20 145/62 H 90 03/06/22 10:56 37.0 C 94 H 20 150/81 H 92 03/06/22 07:29 97 H 03/06/22 06:34 37.2 C 97 H 16 158/72 H 92 03/06/22 04:15 36.7 C 72 18 145/72 H 96 03/05/22 23:18 37.2 C 104 H 18 135/69 93 Pain Intensity Right Hip: Pain Intensity: 9 Transfer of Care Handoff Completed per policy Notes Mental Status: alert / awake / arousable Patient Amnestic to Procedure: Yes Nausea / Vomiting: adequately controlled Pain: adequately controlled Airway Patency, RR, SpO2: stable & adequate BP & HR: stable & adequate Hydration State: stable & adequate Neuraxial Anesthesia: was administered and sensory block is resolving Anesthetic Complications: no major complications apparent and Pt Satisfied with anesthetic care
--- NOTE | 2022-03-06 19:49 | XRay Report ---
XR hip 1V RT w pelvis HISTORY: 71 years-old Female IN PACU - A/P PELVIS and LATERAL HIP right hip total joint arthroplast y COMPARISON: Pelvis and hip radiographs 03/05/2022 TECHNIQUE: AP view of the pelvis with crosstable lateral view of the right hip FINDINGS: Right hip total joint arthroplasty demonstrates satisfactory alignment. Overlying skin guido are pr esent along with expected postoperative soft tissue swelling with deep tissue air. No acute fracture or unexpected opaque foreign body. Surgical drainage catheter. Moderate left hip osteoarthritis. Dara rial calcifications. IMPRESSION: Right hip total joint arthroplasty with expected postoperative changes. ACT 112: Negative or not required by law. The above report was generated using voice recognition software. It may contain grammatical, syntax o r spelling errors. Electronically signed by: Aneesh Maguire M.D. 03/06/2022 7:48 PM
[2022-03-06] MEDS ORDERED: HYDROmorphone INJ 0.5 MG/0.5 ML SYR IV PRN (19:54)
[2022-03-06] MEDS ORDERED: bisacodyL 10 MG SUPP PR PRN (19:54)
[2022-03-06] MEDS ORDERED: diphenhydrAMINE Capsule 25 MG CAP PO PRN (19:54)
[2022-03-06] MEDS ORDERED: MAGNESIUM HYDROXIDE SUSP 30 ML UDC PO PRN (19:54)
[2022-03-06] MEDS ORDERED: KETOROLAC TROMETHAMINE 15 MG/ML VIAL IV PRN (19:54)
[2022-03-06] MEDS ORDERED: NALOXONE HCL 0.4 MG/1 ML VIAL/CARP IV PRN (19:54)
[2022-03-06] MEDS ORDERED: ALUMINUM/MAGNESIUM SUSP 30 ML UDC PO PRN (19:54)
[2022-03-06] MEDS ORDERED: oxyCODONE HCL IR 5 MG TAB (IMMEDIATE RELEASE) PO PRN (19:54)
[2022-03-06] MEDS: SENNA 8.6 MG TAB PO SCH (20:46)
[2022-03-06] MEDS: DOCUSATE SODIUM 100 MG CAP PO SCH (20:47)
[2022-03-06] MEDS: DOCUSATE SODIUM/SENNA 50/8.6MG TAB PO SCH (20:48)
[2022-03-06] MEDS: ceFAZolin 2000MG 2,000 MG/15 ML SYR IV SCH (22:26)
[2022-03-06] MEDS: ACETAMINOPHEN 500 MG TAB PO SCH (22:26)
--- NOTE | 2022-03-07 04:27 | Operative Report (OR) ---
PREOPERATIVE DIAGNOSIS: Right displaced femoral neck fracture. POSTOPERATIVE DIAGNOSIS: Right displaced femoral neck fracture. PROCEDURE: Right hip hemiarthroplasty. SURGEON: Boris Granger DO. VARNISH THINNER: Simon Tolentino PA-C, who was present for patient positioning, sterile prep and drape, management of retractors and instruments. He was present through the critical portions of the case including wound closure, application of sterile dressing and transport of the patient to recovery. ANESTHESIA: Spinal MAC, regional. SPECIMENS: Bone and tissue, right hip. DRAINS: Gonzalez catheter. URINE OUTPUT: Hemovac drains x 2 and a Prevena drain. COMPLICATIONS: None. BLOOD LOSS: 20 mL PERTINENT HISTORY: This is a 71-year-old female who sustained a mechanical fall on her right hip. She was in town for a wedding and she was getting into the car and she stepped off on uneven surface and fell on her right hip. She was unable to ambulate, transported to [facility]. She was evaluated. Radiographs were obtained. She was then admitted to the hospitalist service and after review of the radiographs, orthopedics consultation, the patient was then scheduled for surgery as indicated. All potential risks, benefits, complications, alternatives, rehab potential for incomplete relief of symptoms, need for further surgery, DVT, PE, , persistent pain, swelling, scarring, weakness, neurovascular injury, wound complications, hardware failure, nonunion, malunion, bone fracture were discussed with the patient. The patient decided to proceed with the procedure as indicated. DESCRIPTION OF PROCEDURE: The patient was taken to the operative suite and placed supine on the Operating Room table. After review of the consent, identification of proper operative site, the patient was sedated. Spinal anesthetic was administered without difficulty. The patient was then placed in a left lateral decubitus position with the affected side up. Stulberg positioning pads were placed on the OR table. All bony prominences were properly padded and protected including use of an axillary roll. After the right hip was then sterilely prepped and draped in usual fashion, a 10 blade scalpel incision was made centered over the anterior one third of the greater trochanter. The incision was deepened to subcutaneous tissue. Meticulous hemostasis with electrocautery. Full thickness skin flaps were developed. Care was taken to cauterize any small punctate bleeders with a Bovie. Next, the iliotibial band was then incised along the skin incision, retracted both anteriorly and posteriorly using a Charnley retractor over moistened surgical towels. Next, abductor split was made over the neck and head of the femur down to the level of the trochanter and then this was carried around the greater trochanter and then down the shaft of the femur via the vastus lateralis. All soft tissues were then sharply elevated with electrocautery anteriorly including the gluteus medius, the gluteus diallo, the capsule and then the vastus lateralis. The fractured femoral neck was clearly identified and then a sagittal saw was used to resect the proximal neck cut without any difficulty approximately one fingerbreadth proximal to the lesser trochanter. Next, the femoral head was extracted from the acetabulum and measured to be approximately 47 mm in diameter. A 47 mm trial was placed with appropriate retractors around the acetabulum, noted to have excellent fit and stability. Then box osteotome and trial reamer placed in the proximal femur followed by sequential upbroaching until appropriate size trial was firmly placed. Next, the calcar reamer was utilized to smooth the proximal femur followed by placement of a 135 neck angle and a 47 mm outer diameter trial. This was reduced and noted to have excellent stability and range of motion. Leg lengths were reapproximated to neutral and then all trial implants were then removed. Pulsatile lavage with 3 liters of the solution was used to lavaged the femur, acetabulum and then all soft tissues. Next, final implant of a size 11 Brittny ML taper femoral implant with a 132 degree press-fit [place] size 7 V-40 taper accolade II Femoral stem; Jean LFIT V40 femoral head 26 mm x negative mm; UHR bipolar head, 47 x 26 mm inner diameter. bipolar head was then placed. The acetabulum was then suctioned, reduced. Excellent range of motion and recreation of leg length was achieved. Shuck test was nearly perfect. The leg lengths were restored. Excellent stability. Next, pulsatile lavage was used to cleanse the deep capsule and all soft tissues. Next a #5 FiberWire was placed through the greater trochanter and sutured through the anterior capsule, gluteus minimus and then into the gluteus medius and then sutured back to the greater trochanter with two deep Hemovac drains placed. Sterile dilute Betadine soak was used for 3 minutes. Suture was then tied and cut followed by two [id number] sutures of #5 FiberWire in the proximal capsule. Next, the vastus lateralis was then closed using interrupted #1 Vicryl. The gluteus diallo was closed using #1 Vicryl. The iliotibial band was closed using #1 Vicryl. The incision was copiously irrigated with pulsatile lavage and then the dermis was closed using buried interrupted 2-0 Vicryl. Skin was closed using skin guido. A sterile compressive dressing was applied overwrapped with foam tape. The patient was then awakened and taken to recovery in stable condition with an abductor pillow. Job ID: [id number] [id number]
--- NOTE | 2022-03-07 05:53 | Electrocardiogram Report ---
Test Reason : Blood Pressure : / mmHG Vent. Rate : 099 BPM Atrial Rate : 099 BPM P-R Int : 190 ms QRS Dur : 152 ms QT Int : 412 ms P-R-T Axes : 040 -39 049 degrees QTc Int : 528 ms Normal sinus rhythm Left axis deviation Right bundle branch block Abnormal ECG No previous ECGs available Confirmed by Bandar Dunbar ([id number]) on 03/07/2022 5:53:45 AM Referred By: REFERRED SELF Confirmed By:Bandar Dunbar
--- NOTE | 2022-03-07 05:56 | Electrocardiogram Report ---
Test Reason : Blood Pressure : / mmHG Vent. Rate : 101 BPM Atrial Rate : 101 BPM P-R Int : 190 ms QRS Dur : 146 ms QT Int : 402 ms P-R-T Axes : 045 -41 036 degrees QTc Int : 521 ms Sinus tachycardia Left axis deviation Right bundle branch block Inferior infarct , age undetermined Abnormal ECG When compared with ECG of 05-MAR-2022 16:22, No significant change was found Confirmed by Bandar Dunbar ([id number]) on 03/07/2022 5:55:39 AM Referred By: REFERRED SELF Confirmed By:Bandar Dunbar
--- NOTE | 2022-03-07 05:56 | Electrocardiogram Report ---
Test Reason : Blood Pressure : / mmHG Vent. Rate : 102 BPM Atrial Rate : 102 BPM P-R Int : 188 ms QRS Dur : 146 ms QT Int : 398 ms P-R-T Axes : 049 -41 030 degrees QTc Int : 518 ms Sinus tachycardia Left axis deviation Right bundle branch block Inferior infarct (cited on or before 05-MAR-2022) Abnormal ECG When compared with ECG of 05-MAR-2022 16:49, No significant change was found Confirmed by Bandar Dunbar ([id number]) on 03/07/2022 5:55:59 AM Referred By: REFERRED SELF Confirmed By:Bandar Dunbar
[2022-03-07 06:09] LABS: Basophils # (auto) 0.01 K/uL (0-0.2); Basophils % (auto) 0.1 %; Hematocrit (blood only) 35.9 % (37-47); Hemoglobin 12.1 g/dL (12.0-16.0); Immature Granulocytes # (auto) 0.05 K/uL (0.00-0.02); Immature Granulocytes % (auto) 0.3 %; Lymphocytes # (auto) 0.99 K/uL (1.2-3.4); Lymphocytes % (auto) 6.6 %; Mean Corpuscular Hemoglobin 29.3 pg (25-34); Mean Corpuscular Hgb Conc 33.7 g/dL (32-36); Mean Corpuscular Volume 86.9 fL (80-100); Mean Platelet Volume 8.6 fL (7.4-10.4); Monocytes # (auto) 1.68 K/uL (0.11-0.59); Monocytes % (auto) 11.3 %; Neutrophils # (auto) 12.16 K/uL (1.4-6.5); Neutrophils % (auto) 81.7 %; Platelet Count 224 K/uL (130-400); RDW Standard Deviation 44.4 fL (36.4-46.3); Red Blood Count 4.13 M/uL (4.2-5.4); White Blood Count 14.89 K/uL (4.8-10.8)
--- NOTE | 2022-03-07 06:23 | Electrocardiogram Report ---
Test Reason : Blood Pressure : / mmHG Vent. Rate : 097 BPM Atrial Rate : 097 BPM P-R Int : 176 ms QRS Dur : 152 ms QT Int : 388 ms P-R-T Axes : 018 -34 046 degrees QTc Int : 492 ms Normal sinus rhythm Left axis deviation Left ventricular hypertrophy Right bundle branch block Poor R wave progression, consider anterior PR vs. lead placement vs. LVH Inferior infarct (cited on or before 05-MAR-2022) Abnormal ECG When compared with ECG of 05-MAR-2022 16:52, Borderline criteria for Anterior infarct are now Present Confirmed by Bandar Dunbar ([id number]) on 03/07/2022 6:23:20 AM Referred By: REFERRED SELF Confirmed By:Bandar Dunbar
[2022-03-07] MEDS: ACETAMINOPHEN 500 MG TAB PO SCH ×3 (06:28→21:06)
[2022-03-07] MEDS: ceFAZolin 2000MG 2,000 MG/15 ML SYR IV SCH (06:29)
[2022-03-07 06:30] LABS: BUN Creatinine Ratio 34.9 (10-20); Calcium 8.5 mg/dl (8.5-10.1); Creatinine Clr Calc Pharmacy 136.3 ml/min; Est GFR (African American) 119.4 ml/min; Est GFR (Non-African American) 103.1 ml/min; Magnesium 1.8 mg/dl (1.7-2.4); Potassium 3.6 mmol/L (3.5-5.1)
[2022-03-07] MEDS: hydrALAZINE TAB 50 MG TAB PO SCH ×4 (07:26→20:10)
[2022-03-07] MEDS: DOCUSATE SODIUM 100 MG CAP PO SCH ×2 (07:26→20:10)
[2022-03-07] MEDS: APIXABAN 2.5 MG TAB PO SCH ×2 (07:26→20:11)
[2022-03-07] MEDS: MULTIVITAMIN TAB PO SCH (07:26)
[2022-03-07] MEDS: LOSARTAN/HCTZ 50/12.5MG TAB PO SCH (07:26)
[2022-03-07] MEDS: ROSUVASTATIN CALCIUM 5 MG TAB PO SCH (07:27)
[2022-03-07] MEDS: CEROVITE ADV FORMULA TAB PO SCH (07:27)
[2022-03-07] MEDS: dilTIAZem HCL 240 MG CAPCR PO SCH (07:27)
[2022-03-07] MEDS: ADVANCED PROBIOTIC 1250 MG CAPSULE PO SCH (07:27)
[2022-03-07] MEDS: INSULIN GLARGINE SOLOSTAR 100 UNITS/ML 3 ML PEN SC SCH ×2 (08:21→21:06)
[2022-03-07] MEDS: INSULIN ASPART PER UNIT SC SCH ×4 (08:21→21:05)
--- NOTE | 2022-03-07 09:14 | XRay Report ---
XR chest 1V portable CLINICAL HISTORY: Hypoxia. COMPARISON STUDY: No previous studies for comparison. TECHNIQUE: 1 view of the chest FINDINGS: Single frontal view of the chest demonstrates the cardiomediastinal silhouette to be within normal li mits. There is evidence for very mild central vascular congestion. No peripheral interstitial edema i s seen. There is no evidence for pleural effusion. No alveolar opacities are identified. There is no acute osseous pathology. IMPRESSION: 1. Mild central vascular congestion. ACT 112: Negative or not required by law. Electronically signed by: Kurtis Shaw M.D. 03/07/2022 9:12 AM
--- NOTE | 2022-03-07 09:38 | Orthopedic Progress Note ---
Date of Service March 07, 2022 Assessment & Plan (1) Closed right hip fracture: Plan: Postop day 1 status post right bipolar hemiarthroplasty PT/OT protocols. Weightbearing as tolerated. DVT prophylaxis-apixaban 2.5 mg p.o. twice daily. SCDs. Pain management as written. DC planning-[facility] prior to returning to home. Admission and Anticipated Discharge Date Admission Date: March 05, 2022 Subjective Postop day 1 Patient is sitting up in bed awake and alert. No complaints this morning. She has much better pain control in the hip since she has had her surgery. Denies shortness of breath, chest pain, lightheadedness. Physical Exam Physical Exam: Prevena wound VAC intact and functioning. Hemovac present and continues to drain a small amount of drainage. Calves are soft nontender. Neurovascular is intact. Toes are mobile. Leg lengths appear equal. Results & Data ([facility]) Vital Signs (Past 12 Hours) Vital Signs Temp Pulse Pulse Resp BP Pulse Ox 03/07/22 06:39 36.9 C 100 H 18 159/84 H 95 03/07/22 03:16 36.9 C 93 H 18 133/67 94 03/06/22 23:07 91 H 03/06/22 22:26 38 C H 93 H 18 109/56 L 93 Laboratory Results Laboratory Results WBC 14.89 K/uL (4.8-10.8) H 03/07/22 05:44 RBC 4.13 M/uL (4.2-5.4) L 03/07/22 05:44 Hgb 12.1 g/dL (12.0-16.0) 03/07/22 05:44 Hct 35.9 % (37-47) L 03/07/22 05:44 MCV 86.9 fL (80-100) 03/07/22 05:44 MCH 29.3 pg (25-34) 03/07/22 05:44 MCHC 33.7 g/dL (32-36) 03/07/22 05:44 RDW Std Deviation 44.4 fL (36.4-46.3) 03/07/22 05:44 RDW Coeff of Salazar 14.0 % (11.5-14.5) 03/07/22 05:44 Plt Count 224 K/uL (130-400) 03/07/22 05:44 MPV 8.6 fL (7.4-10.4) 03/07/22 05:44 Immature Gran % (Auto) 0.3 % 03/07/22 05:44 Neut % (Auto) 81.7 % 03/07/22 05:44 Lymph % (Auto) 6.6 % 03/07/22 05:44 [place] % (Auto) 11.3 % 03/07/22 05:44 Eos % (Auto) 0.0 % 03/07/22 05:44 Baso % (Auto) 0.1 % 03/07/22 05:44 Neut # (Auto) 12.16 K/uL (1.4-6.5) H 03/07/22 05:44 Lymph # (Auto) 0.99 K/uL (1.2-3.4) L 03/07/22 05:44 [place] # (Auto) 1.68 K/uL (0.11-0.59) H 03/07/22 05:44 Eos # (Auto) 0.00 K/uL (0-0.5) 03/07/22 05:44 Baso # (Auto) 0.01 K/uL (0-0.2) 03/07/22 05:44 Immature Gran # (Auto) 0.05 K/uL (0.00-0.02) H 03/07/22 05:44 PT 10.9 Seconds (9.0-12.0) 03/05/22 10:10 INR 1.0 (0.9-1.1) 03/05/22 10:10 APTT 24.5 Seconds (21.0-31.0) 03/05/22 10:10 PTT Ratio 0.9 03/05/22 10:10 Sodium 136 mmol/L (136-145) 03/07/22 05:44 Potassium 3.6 mmol/L (3.5-5.1) 03/07/22 05:44 Chloride 104 mmol/L (98-107) 03/07/22 05:44 Carbon Dioxide 24 mmol/L (21-32) 03/07/22 05:44 Anion Gap 8 (3-11) 03/07/22 05:44 BUN 15 mg/dl (6-23) 03/07/22 05:44 Creatinine 0.43 mg/dl (0.6-1.2) L 03/07/22 05:44 Est Cr Clr Drug Dosing 136.3 ml/min 03/07/22 05:44 Est GFR ( Amer) 119.4 ml/min 03/07/22 05:44 Est GFR (Non-Af Amer) 103.1 ml/min 03/07/22 05:44 BUN/Creatinine Ratio 34.9 (10-20) H 03/07/22 05:44 Glucose 171 mg/dl (70-99(Fasting)) H 03/07/22 05:44 POC Glucose 185 mg/dl (70-99) H 03/07/22 07:27 Calcium 8.5 mg/dl (8.5-10.1) 03/07/22 05:44 Magnesium 1.8 mg/dl (1.7-2.4) 03/07/22 05:44 Total Bilirubin 0.5 mg/dl (0.2-1.0) 03/05/22 10:10 AST 28 U/L (13-39) 03/05/22 10:10 ALT 23 U/L (7-52) 03/05/22 10:10 Alkaline Phosphatase 68 U/L (34-104) 03/05/22 10:10 Troponin I < 0.03 ng/ml (0-0.04) 03/06/22 06:17 Total Protein 7.7 gm/dl (6.0-8.3) 03/05/22 10:10 Albumin 4.8 gm/dl (3.4-5.0) 03/05/22 10:10 Globulin 2.9 gm/dl (2.5-4.0) 03/05/22 10:10 Albumin/Globulin Ratio 1.7 (0.9-2) 03/05/22 10:10 Urine Color Yellow 03/05/22 11:45 Urine Appearance Clear (Clear) 03/05/22 11:45 Urine pH 5.5 (4.5-7.5) 03/05/22 11:45 Ur Specific [place] 1.017 (1.000-1.030) 03/05/22 11:45 Urine Protein Negative (Negative) 03/05/22 11:45 Urine Glucose (UA) Negative (Negative) 03/05/22 11:45 Urine Ketones 1+ (Negative) H 03/05/22 11:45 Urine Blood Negative (Negative) 03/05/22 11:45 Urine Nitrite Negative (Negative) 03/05/22 11:45 Urine Bilirubin Negative (Negative) 03/05/22 11:45 Urine Urobilinogen Negative (Negative) 03/05/22 11:45 Ur Leukocyte Esterase Negative (Negative) 03/05/22 11:45 Nasal Screen MRSA (PCR) Negative (Negative) 03/05/22 14:33 SARS-CoV-2, RNA, NAAT NEGATIVE (NEGATIVE) 03/05/22 Unknown Impressions Hip/Pelvis X-Ray 03/06/22 16:54 XR hip 1V RT w pelvis HISTORY: 71 years-old Female IN PACU - A/P PELVIS and LATERAL HIP right hip total joint arthroplasty COMPARISON: Pelvis and hip radiographs 03/05/2022 TECHNIQUE: AP view of the pelvis with crosstable lateral view of the right hip FINDINGS: Right hip total joint arthroplasty demonstrates satisfactory alignment. Overlying skin guido are present along with expected postoperative soft tissue swelling with deep tissue air. No acute fracture or unexpected opaque foreign body. Surgical drainage catheter. Moderate left hip osteoarthritis. Arterial calcifications. IMPRESSION: Right hip total joint arthroplasty with expected postoperative changes. ACT 112: Negative or not required by law. The above report was generated using voice recognition software. It may contain grammatical, syntax or spelling errors. Electronically signed by: Aneesh Maguire M.D. 03/06/2022 7:48 PM (1) Closed right hip fracture Encounter type: initial encounter Qualified Code(s): S72.001A - Fracture of unspecified part of neck of right femur, initial encounter for closed fracture
[2022-03-07] MEDS ORDERED: FUROSEMIDE INJ 20 MG/2 ML VIAL IV ONE (09:55)
--- NOTE | 2022-03-07 15:10 | Hospitalist Progress Note ---
Date of Service March 07, 2022 Assessment & Plan (1) Closed right hip fracture: Plan: Acute Right Hip Fracture X ray:Impacted and mildly displaced subcapital fracture of the right femur. --S/P Right hip hemiarthroplasty POD #1 Acute postoperative blood loss anemia Weightbearing as tolerated Appreciate Orthopedics Input Fall precautions PT/OT when appropriate Pain Control Bowel regimen to prevent constipation May need Rehab Placement On Apixaban for DVT Prophylaxis No indication for blood transfusion Leukocytosis likely reactive (2) HTN, goal below 140/90: Plan: BP more stable today Continue Cardizem, Hyzaar, Hydralazine Monitor (3) Type 2 diabetes, HbA1c goal < 7%: Plan: HbA1C 8.3 02/03/2022 Hold PO meds Continue Insulin basal and sliding scale Monitor BGs (4) Hyperlipidemia LDL goal <100: Plan: Continue rosuvastatin (5) Obesity (BMI 30-39.9): (6) DVT prophylaxis: Plan: Apixaban SCDs Admission and Anticipated Discharge Date Admission Date: March 05, 2022 Subjective Patient is seen and examined at bedside Denies any significant right hip pain Sitting in chair during my encounter Denies any chest pain, dyspnea, dizziness, nausea, abd pain Offers no other complaints Review of Systems Review of Systems: All systems reviewed & are unremarkable except as noted in Subjective Physical Exam Physical Exam: Physical Exam: Vitals signs as noted above General Appearance:Obese, no apparent distress Head: normocephalic, Atraumatic Eyes: normal inspection, EOMI Neck: supple, Trachea midline Respiratory/Chest: Normal breath sounds, CTA, No accessory muscle use Cardiovascular: S1, S2, + murmur Abdomen/GI:Soft, Non tender, Bowel sounds present Extremities/Musculoskeletal:normal inspection, R hip surgical site in dressing, no edema Neurologic/Psych:AAOX3, grossly no focal neurological deficits Skin: normal color, warm Results & Data Results & Data ([facility]) Vital Signs (Past 12 Hours) Vital Signs Temp Pulse Resp BP Pulse Ox 03/07/22 11:14 36.5 C 97 H 18 129/74 94 03/07/22 06:39 36.9 C 100 H 18 159/84 H 95 03/07/22 03:16 36.9 C 93 H 18 133/67 94 Laboratory Results Short CBC 03/07/22 Range/Units 05:44 WBC 14.89 H (4.8-10.8) K/uL Hgb 12.1 (12.0-16.0) g/dL Hct 35.9 L (37-47) % Plt Count 224 (130-400) K/uL [facility] 03/07/22 05:44 Sodium 136 Potassium 3.6 Chloride 104 Carbon Dioxide 24 BUN 15 Creatinine 0.43 L Glucose 171 H Calcium 8.5 (1) Closed right hip fracture Encounter type: initial encounter Qualified Code(s): S72.001A - Fracture of unspecified part of neck of right femur, initial encounter for closed fracture
[2022-03-07] MEDS: SENNA 8.6 MG TAB PO SCH (20:11)
[2022-03-07] MEDS: CeleBREX 200 MG CAP PO SCH (20:11)
[2022-03-07] MEDS: DOCUSATE SODIUM/SENNA 50/8.6MG TAB PO SCH (20:12)
[2022-03-07] MEDS ORDERED: CALCIUM CARBONATE 500 MG CHEWABLE TAB PO PRN (20:22)
[2022-03-08] MEDS: ACETAMINOPHEN 500 MG TAB PO SCH ×3 (05:50→21:15)
[2022-03-08 06:44] LABS: Hematocrit (blood only) 34.4 % (37-47); Hemoglobin 11.6 g/dL (12.0-16.0); Mean Corpuscular Hemoglobin 29.4 pg (25-34); Mean Corpuscular Hgb Conc 33.7 g/dL (32-36); Mean Corpuscular Volume 87.1 fL (80-100); Mean Platelet Volume 8.7 fL (7.4-10.4); Platelet Count 255 K/uL (130-400); RDW Standard Deviation 44.5 fL (36.4-46.3); Red Blood Count 3.95 M/uL (4.2-5.4); White Blood Count 16.34 K/uL (4.8-10.8)
[2022-03-08 07:13] LABS: BUN Creatinine Ratio 40.5 (10-20); Calcium 8.6 mg/dl (8.5-10.1); Creatinine Clr Calc Pharmacy 162.8 ml/min; Est GFR (African American) 125.5 ml/min; Est GFR (Non-African American) 108.3 ml/min; Potassium 3.3 mmol/L (3.5-5.1)
[2022-03-08] MEDS: CeleBREX 200 MG CAP PO SCH ×2 (07:39→21:16)
[2022-03-08] MEDS: dilTIAZem HCL 240 MG CAPCR PO SCH (07:39)
[2022-03-08] MEDS: APIXABAN 2.5 MG TAB PO SCH ×2 (07:39→21:17)
[2022-03-08] MEDS: LOSARTAN/HCTZ 50/12.5MG TAB PO SCH (07:40)
[2022-03-08] MEDS: ADVANCED PROBIOTIC 1250 MG CAPSULE PO SCH (07:40)
[2022-03-08] MEDS: CEROVITE ADV FORMULA TAB PO SCH (07:40)
[2022-03-08] MEDS: hydrALAZINE TAB 50 MG TAB PO SCH ×4 (07:40→21:16)
[2022-03-08] MEDS: ROSUVASTATIN CALCIUM 5 MG TAB PO SCH (07:40)
[2022-03-08] MEDS: DOCUSATE SODIUM 100 MG CAP PO SCH ×2 (07:40→21:17)
[2022-03-08] MEDS ORDERED: POTASSIUM CHLORIDE CRTAB 20 MEQ TABCR PO STA (08:28)
[2022-03-08] MEDS: INSULIN GLARGINE SOLOSTAR 100 UNITS/ML 3 ML PEN SC SCH ×2 (08:37→21:18)
[2022-03-08] MEDS: INSULIN ASPART PER UNIT SC SCH ×4 (08:38→21:13)
[2022-03-08] MEDS: MULTIVITAMIN TAB PO SCH (08:38)
--- NOTE | 2022-03-08 10:36 | Orthopedic Progress Note ---
Date of Service March 08, 2022 Assessment & Plan (1) Closed right hip fracture: Plan: Postop day 2 status post right bipolar hemiarthroplasty PT/OT protocols. Weightbearing as tolerated. DVT prophylaxis-apixaban 2.5 mg p.o. twice daily. SCDs. Pain management as written. DC planning-patient is planning [facility] prior to returning to home. Admission and Anticipated Discharge Date Admission Date: March 05, 2022 Subjective Postop day 2 Patient sitting in her chair at the bedside. She has just finished her physical therapy session of which she had ambulated approximately 27 feet. Patient states she feels well. Pain is controlled. Physical Exam Physical Exam: Prevena dressing is clean, dry, and intact. Functioning well. Hemovac present. Calves are soft and nontender. Neurovascular is intact. Toes are mobile. Hip appears located. Results & Data ([facility]) Vital Signs (Past 12 Hours) Vital Signs Temp Pulse Pulse Resp BP BP Pulse Ox 03/08/22 07:50 36.8 C 94 H 18 137/77 90 03/08/22 06:15 97 H 03/08/22 02:58 104 H 03/08/22 02:48 36.7 C 92 H 18 135/78 93 03/07/22 23:10 36.8 C 98 H 18 134/71 92 Laboratory Results Laboratory Results WBC 16.34 K/uL (4.8-10.8) H 03/08/22 06:21 RBC 3.95 M/uL (4.2-5.4) L 03/08/22 06:21 Hgb 11.6 g/dL (12.0-16.0) L 03/08/22 06:21 Hct 34.4 % (37-47) L 03/08/22 06:21 MCV 87.1 fL (80-100) 03/08/22 06:21 MCH 29.4 pg (25-34) 03/08/22 06:21 MCHC 33.7 g/dL (32-36) 03/08/22 06:21 RDW Std Deviation 44.5 fL (36.4-46.3) 03/08/22 06:21 RDW Coeff of Salazar 14.0 % (11.5-14.5) 03/08/22 06:21 Plt Count 255 K/uL (130-400) 03/08/22 06:21 MPV 8.7 fL (7.4-10.4) 03/08/22 06:21 Immature Gran % (Auto) 0.3 % 03/07/22 05:44 Neut % (Auto) 81.7 % 03/07/22 05:44 Lymph % (Auto) 6.6 % 03/07/22 05:44 [place] % (Auto) 11.3 % 03/07/22 05:44 Eos % (Auto) 0.0 % 03/07/22 05:44 Baso % (Auto) 0.1 % 03/07/22 05:44 Neut # (Auto) 12.16 K/uL (1.4-6.5) H 03/07/22 05:44 Lymph # (Auto) 0.99 K/uL (1.2-3.4) L 03/07/22 05:44 [place] # (Auto) 1.68 K/uL (0.11-0.59) H 03/07/22 05:44 Eos # (Auto) 0.00 K/uL (0-0.5) 03/07/22 05:44 Baso # (Auto) 0.01 K/uL (0-0.2) 03/07/22 05:44 Immature Gran # (Auto) 0.05 K/uL (0.00-0.02) H 03/07/22 05:44 PT 10.9 Seconds (9.0-12.0) 03/05/22 10:10 INR 1.0 (0.9-1.1) 03/05/22 10:10 APTT 24.5 Seconds (21.0-31.0) 03/05/22 10:10 PTT Ratio 0.9 03/05/22 10:10 Sodium 137 mmol/L (136-145) 03/08/22 06:21 Potassium 3.3 mmol/L (3.5-5.1) L 03/08/22 06:21 Chloride 102 mmol/L (98-107) 03/08/22 06:21 Carbon Dioxide 27 mmol/L (21-32) 03/08/22 06:21 Anion Gap 8 (3-11) 03/08/22 06:21 BUN 15 mg/dl (6-23) 03/08/22 06:21 Creatinine 0.37 mg/dl (0.6-1.2) L 03/08/22 06:21 Est Cr Clr Drug Dosing 162.8 ml/min 03/08/22 06:21 Est GFR ( Amer) 125.5 ml/min 03/08/22 06:21 Est GFR (Non-Af Amer) 108.3 ml/min 03/08/22 06:21 BUN/Creatinine Ratio 40.5 (10-20) H 03/08/22 06:21 Glucose 179 mg/dl (70-99(Fasting)) H 03/08/22 06:21 POC Glucose 208 mg/dl (70-99) H 03/08/22 07:35 Calcium 8.6 mg/dl (8.5-10.1) 03/08/22 06:21 Magnesium 1.8 mg/dl (1.7-2.4) 03/07/22 05:44 Total Bilirubin 0.5 mg/dl (0.2-1.0) 03/05/22 10:10 AST 28 U/L (13-39) 03/05/22 10:10 ALT 23 U/L (7-52) 03/05/22 10:10 Alkaline Phosphatase 68 U/L (34-104) 03/05/22 10:10 Troponin I < 0.03 ng/ml (0-0.04) 03/06/22 06:17 Total Protein 7.7 gm/dl (6.0-8.3) 03/05/22 10:10 Albumin 4.8 gm/dl (3.4-5.0) 03/05/22 10:10 Globulin 2.9 gm/dl (2.5-4.0) 03/05/22 10:10 Albumin/Globulin Ratio 1.7 (0.9-2) 03/05/22 10:10 Urine Color Yellow 03/05/22 11:45 Urine Appearance Clear (Clear) 03/05/22 11:45 Urine pH 5.5 (4.5-7.5) 03/05/22 11:45 Ur Specific [place] 1.017 (1.000-1.030) 03/05/22 11:45 Urine Protein Negative (Negative) 03/05/22 11:45 Urine Glucose (UA) Negative (Negative) 03/05/22 11:45 Urine Ketones 1+ (Negative) H 03/05/22 11:45 Urine Blood Negative (Negative) 03/05/22 11:45 Urine Nitrite Negative (Negative) 03/05/22 11:45 Urine Bilirubin Negative (Negative) 03/05/22 11:45 Urine Urobilinogen Negative (Negative) 03/05/22 11:45 Ur Leukocyte Esterase Negative (Negative) 03/05/22 11:45 Nasal Screen MRSA (PCR) Negative (Negative) 03/05/22 14:33 Hepatitis C Ab (EIA) NON-REACTIVE (NON-REACTIVE) 03/06/22 06:17 Hep C Ab Signal/Cutoff 0.01 (<1.00) 03/06/22 06:17 SARS-CoV-2, RNA, NAAT NEGATIVE (NEGATIVE) 03/05/22 Unknown (1) Closed right hip fracture Encounter type: initial encounter Qualified Code(s): S72.001A - Fracture of unspecified part of neck of right femur, initial encounter for closed fracture
--- NOTE | 2022-03-08 11:25 | Hospitalist Progress Note ---
Date of Service March 08, 2022 Assessment & Plan (1) Closed right hip fracture: Plan: Acute Right Hip Fracture X ray:Impacted and mildly displaced subcapital fracture of the right femur. --S/P Right hip hemiarthroplasty POD #2 Acute postoperative blood loss anemia Weightbearing as tolerated Orthopedic on board. Surgical drain management per orthopedic team Fall precautions PT/OT when appropriate Pain Controlled. Last use of opioid was >24h ago. DC dilaudid. Continue tylenol and oxycodone Bowel regimen On Apixaban for DVT Prophylaxis. Patient has h/o DVT Will need to be on this for about 4 weeks or till full ambulation whichever is first Monitor Hb Leukocytosis likely reactive (2) HTN, goal below 140/90: Plan: BP more stable today Continue Cardizem, Hyzaar, Hydralazine Monitor (3) Type 2 diabetes, HbA1c goal < 7%: Plan: HbA1C 8.3 02/03/2022 Hold PO meds Continue Insulin basal and sliding scale Monitor BGs (4) Hyperlipidemia LDL goal <100: Plan: Continue rosuvastatin (5) Obesity (BMI 30-39.9): (6) DVT prophylaxis: Plan: Apixaban SCDs Plan to DC to [facility] once stable Discussed with RN to remove prince Admission and Anticipated Discharge Date Admission Date: March 05, 2022 Subjective 71-year-old woman with DM type II, hypertension who presented after a fall onto the right hip. Being managed for acute right hip fracture status post right hip hemiarthroplasty. Patient seen and examined this morning. Patient reports right hip pain is controlled. Reports pain mostly with activity. Denies any headache, dizziness, nausea, vomiting, abdominal pain. Passing gas. Yet to have a bowel movement. Chest pain, cough, shortness of breath Physical Exam Constitutional: + well hydrated and + obese; no acute distress Eyes: PERRL, conjunctivae normal, anicteric sclerae ENMT: external ear and nose normal, oropharynx normal Respiratory: normal respiratory effort, lungs clear to auscultation Cardiovascular: Rate/Rhythm: regular rate and regular rhythm S1-S2 Gastrointestinal (Abdomen): normal bowel sounds, soft, nontender, no hepatosplenomegaly Musculoskeletal: Clean dressing over surgical site over right hip with drain in situ with serosanguineous drainage Neurologic: PERRL, EOMI, accommodation nl, no face palsy, no dysarthria Psychiatric: A+Ox3, euthymic affect Genitourinary: Prince in situ Results & Data Results & Data ([facility]) Vital Signs (Past 12 Hours) Vital Signs Temp Pulse Pulse Resp BP BP Pulse Ox 03/08/22 07:50 36.8 C 94 H 18 137/77 90 03/08/22 06:15 97 H 03/08/22 02:58 104 H 03/08/22 02:48 36.7 C 92 H 18 135/78 93 Laboratory Results Abnormal lab results 03/07/22 03/07/22 03/07/22 Range/Units 11:24 16:29 20:27 WBC (4.8-10.8) K/uL RBC (4.2-5.4) M/uL Hgb (12.0-16.0) g/dL Hct (37-47) % Potassium (3.5-5.1) mmol/L Creatinine (0.6-1.2) mg/dl BUN/Creatinine Ratio (10-20) Glucose (70-99(Fasting)) mg/dl POC Glucose 235 H 233 H 232 H (70-99) mg/dl 03/08/22 03/08/22 03/08/22 Range/Units 06:21 06:21 07:35 WBC 16.34 H (4.8-10.8) K/uL RBC 3.95 L (4.2-5.4) M/uL Hgb 11.6 L (12.0-16.0) g/dL Hct 34.4 L (37-47) % Potassium 3.3 L (3.5-5.1) mmol/L Creatinine 0.37 L (0.6-1.2) mg/dl BUN/Creatinine Ratio 40.5 H (10-20) Glucose 179 H (70-99(Fasting)) mg/dl POC Glucose 208 H (70-99) mg/dl (1) Closed right hip fracture Encounter type: initial encounter Qualified Code(s): S72.001A - Fracture of unspecified part of neck of right femur, initial encounter for closed fracture
[2022-03-08] MEDS: METOCLOPRAMIDE HCL INJ 5 MG/ML 2 ML VIAL IV PRN (19:53)
[2022-03-08] MEDS: SENNA 8.6 MG TAB PO SCH (21:17)
[2022-03-08] MEDS: DOCUSATE SODIUM/SENNA 50/8.6MG TAB PO SCH (21:18)
[2022-03-09] MEDS: ACETAMINOPHEN 500 MG TAB PO SCH ×3 (04:44→21:15)
[2022-03-09 06:41] LABS: Hematocrit (blood only) 35.2 % (37-47); Mean Corpuscular Hemoglobin 29.2 pg (25-34); Mean Corpuscular Hgb Conc 34.1 g/dL (32-36); Mean Corpuscular Volume 85.6 fL (80-100); Mean Platelet Volume 8.7 fL (7.4-10.4); Platelet Count 315 K/uL (130-400); RDW Coefficient of Variation 13.9 % (11.5-14.5); RDW Standard Deviation 43.8 fL (36.4-46.3); Red Blood Count 4.11 M/uL (4.2-5.4)
[2022-03-09 07:00] LABS: BUN Creatinine Ratio 55.9 (10-20); Calcium 8.5 mg/dl (8.5-10.1); Creatinine Clr Calc Pharmacy 177.2 ml/min; Est GFR (Non-African American) 111.3 ml/min; Magnesium 1.7 mg/dl (1.7-2.4); Potassium 3.7 mmol/L (3.5-5.1)
[2022-03-09] MEDS: METOCLOPRAMIDE HCL INJ 5 MG/ML 2 ML VIAL IV PRN (08:12)
[2022-03-09] MEDS: ROSUVASTATIN CALCIUM 5 MG TAB PO SCH (08:15)
[2022-03-09] MEDS: APIXABAN 2.5 MG TAB PO SCH ×2 (08:15→21:13)
[2022-03-09] MEDS: hydrALAZINE TAB 50 MG TAB PO SCH ×4 (08:16→21:15)
[2022-03-09] MEDS: LOSARTAN/HCTZ 50/12.5MG TAB PO SCH (08:16)
[2022-03-09] MEDS: dilTIAZem HCL 240 MG CAPCR PO SCH (08:16)
[2022-03-09] MEDS: DOCUSATE SODIUM 100 MG CAP PO SCH ×2 (08:16→21:14)
[2022-03-09] MEDS: ADVANCED PROBIOTIC 1250 MG CAPSULE PO SCH (08:16)
[2022-03-09] MEDS: CEROVITE ADV FORMULA TAB PO SCH (08:17)
[2022-03-09] MEDS: CeleBREX 200 MG CAP PO SCH ×2 (08:17→21:14)
[2022-03-09] MEDS: MULTIVITAMIN TAB PO SCH (08:17)
[2022-03-09] MEDS: INSULIN GLARGINE SOLOSTAR 100 UNITS/ML 3 ML PEN SC SCH ×2 (08:18→21:09)
[2022-03-09] MEDS: INSULIN ASPART PER UNIT SC SCH ×4 (08:18→21:08)
[2022-03-09] MEDS: POLYETHYLENE (MIRALAX) 17 GM PACK PO SCH (08:40)
--- NOTE | 2022-03-09 11:30 | Orthopedic Progress Note ---
Date of Service March 09, 2022 Assessment & Plan (1) Closed right hip fracture: Plan: Postop day 3 status post right bipolar hemiarthroplasty PT/OT protocols. Weightbearing as tolerated. DVT prophylaxis-apixaban 2.5 mg p.o. twice daily. SCDs. Pain management as written. Orthopedics will sign off at this time. Please call with any questions. Discharge instructions placed in DC section. Follow-up with Dr. Granger in 14 days from the day of surgery. DC planning-patient [facility] prior to returning to home. Admission and Anticipated Discharge Date Admission Date: March 05, 2022 Subjective Postop day 3 Patient is sitting in her chair at the bedside. She had a little bit of nausea last night of which they contributed to lack of bowel movement. She has had a small BM this morning. She states they are continuing to work on her bowels. No other complaints. Pain is controlled presently. Physical Exam Physical Exam: Prevena dressing is clean, dry, and intact. No drainage in the collection tube. Calves are soft and nontender. Neurovascular intact. Toes are mobile. Hip appears located. Results & Data ([facility]) Vital Signs (Past 12 Hours) Vital Signs Temp Pulse Pulse Resp BP BP Pulse Ox 03/09/22 11:00 36.6 C 86 18 157/72 H 93 03/09/22 07:48 36.6 C 96 H 20 159/83 H 94 03/09/22 07:07 94 H 03/09/22 03:00 37 C 102 H 20 182/83 H 91 03/09/22 01:03 98 H Laboratory Results 03/09/22 03/09/22 03/09/22 Range/Units 11:27 07:36 06:28 WBC (4.8-10.8) K/uL RBC (4.2-5.4) M/uL Hgb (12.0-16.0) g/dL Hct (37-47) % MCV (80-100) fL MCH (25-34) pg MCHC (32-36) g/dL RDW Std Deviation (36.4-46.3) fL RDW Coeff of Salazar (11.5-14.5) % Plt Count (130-400) K/uL MPV (7.4-10.4) fL Sodium 133 L (136-145) mmol/L Potassium 3.7 (3.5-5.1) mmol/L Chloride 100 (98-107) mmol/L Carbon Dioxide 23 (21-32) mmol/L Anion Gap 10 (3-11) BUN 19 (6-23) mg/dl Creatinine 0.34 L (0.6-1.2) mg/dl Est Cr Clr Drug Dosing 177.2 ml/min Est GFR ( Amer) 129.0 ml/min Est GFR (Non-Af Amer) 111.3 ml/min BUN/Creatinine Ratio 55.9 H (10-20) Glucose 208 H (70-99(Fasting)) mg/dl POC Glucose 219 H 215 H (70-99) mg/dl Calcium 8.5 (8.5-10.1) mg/dl Phosphorus 2.0 L (2.5-4.9) mg/dl Magnesium 1.7 (1.7-2.4) mg/dl 03/09/22 03/08/22 03/08/22 Range/Units 06:28 20:06 16:44 WBC 17.30 H (4.8-10.8) K/uL RBC 4.11 L (4.2-5.4) M/uL Hgb 12.0 (12.0-16.0) g/dL Hct 35.2 L (37-47) % MCV 85.6 (80-100) fL MCH 29.2 (25-34) pg MCHC 34.1 (32-36) g/dL RDW Std Deviation 43.8 (36.4-46.3) fL RDW Coeff of Salazar 13.9 (11.5-14.5) % Plt Count 315 (130-400) K/uL MPV 8.7 (7.4-10.4) fL Sodium (136-145) mmol/L Potassium (3.5-5.1) mmol/L Chloride (98-107) mmol/L Carbon Dioxide (21-32) mmol/L Anion Gap (3-11) BUN (6-23) mg/dl Creatinine (0.6-1.2) mg/dl Est Cr Clr Drug Dosing ml/min Est GFR ( Amer) ml/min Est GFR (Non-Af Amer) ml/min BUN/Creatinine Ratio (10-20) Glucose (70-99(Fasting)) mg/dl POC Glucose 219 H 227 H (70-99) mg/dl Calcium (8.5-10.1) mg/dl Phosphorus (2.5-4.9) mg/dl Magnesium (1.7-2.4) mg/dl 03/08/22 Range/Units 11:52 WBC (4.8-10.8) K/uL RBC (4.2-5.4) M/uL Hgb (12.0-16.0) g/dL Hct (37-47) % MCV (80-100) fL MCH (25-34) pg MCHC (32-36) g/dL RDW Std Deviation (36.4-46.3) fL RDW Coeff of Salazar (11.5-14.5) % Plt Count (130-400) K/uL MPV (7.4-10.4) fL Sodium (136-145) mmol/L Potassium (3.5-5.1) mmol/L Chloride (98-107) mmol/L Carbon Dioxide (21-32) mmol/L Anion Gap (3-11) BUN (6-23) mg/dl Creatinine (0.6-1.2) mg/dl Est Cr Clr Drug Dosing ml/min Est GFR ( Amer) ml/min Est GFR (Non-Af Amer) ml/min BUN/Creatinine Ratio (10-20) Glucose (70-99(Fasting)) mg/dl POC Glucose 227 H (70-99) mg/dl Calcium (8.5-10.1) mg/dl Phosphorus (2.5-4.9) mg/dl Magnesium (1.7-2.4) mg/dl (1) Closed right hip fracture Encounter type: initial encounter Qualified Code(s): S72.001A - Fracture of unspecified part of neck of right femur, initial encounter for closed fracture
--- NOTE | 2022-03-09 12:35 | Discharge Summary ---
Date of Service March 09, 2022 Admission HPI Per Admitting Provider Patient is a 71 yo female with PMHx of DM type 2, HTN, Hyperlipidemia who presented to the ED via ambulance for concern of fall onto right hip this morning. She is from the [facility] but is in town for a wedding. She was packing the car when she stepped off of an uneven surface and fell onto her right hip. She was unable to stand/walk after the episode. She was transported to the ED and has since had XRay of the right hip which showed impacted and slightly displaced femur fx. This image was reviewed by me today. She was initially dizzy immediately after her fall, but no further dizziness. No LOC. No head injury. She caught herself slightly with her right arm but no injury or bruising. Right hip Pain is 5/10 now after dose of Morphine in the ED. She is comfortable on exam. She did take some of her medications this morning, but she did not take her glimepiride. She has not eaten yet today. Labs reviewed as well. Renal function stable. WBC count slightly elevated. Glucose 187. BP high on admission, improved with pain control. The patient's outpatient medical record was reviewed. PMHx, social hx, family hx, and surgical hx updated. Discharge Data Allergies Allergy/AdvReac Type Severity Reaction Status Date / Time Penicillins Allergy Intermediate Hives Verified 03/05/22 14:41 Consultations 03/05/22 12:03 ED Decision to Admit Stat 03/05/22 13:14 Consult Orthopedic Surgery Routine 03/05/22 18:16 Consult Cardiology Routine Procedures Performed Operation Date: 03/06/22 07:50 Actual Procedures p Right Hip Hemiarthroplasty(Right) - Boris Granger DO Discharge Plan Discharge Items Patient Disposition: Transfer Inpatient Rehab Fac Reason For Visit: HIP FRACTURE Discharge Diagnosis: Fall Right hip fracture Status post right hip hemiarthroplasty Activity: Per Instructions section Weightbearing: Right weightbearing Weightbearing Comment: as tolerated with walker Non-emergency contact: Surgeon Call non-emergency contact if: your pain is not controlled, your temperature is above 101.5, your wound has increased redness and your wound has increased drainage Follow-up/Referrals: Boris Granger DO [Surgeon] - (Follow up in 14 days from the day of surgery for your first wound check. ) PCP,NO [Primary Care Provider] - Diet: Carb Consistent or DM2 and Heart Healthy Addtl Attending Provider Instructions: Mrs Dickerson. You came to the hospital after a fall. You were evaluated and found to have a right hip fracture. You had right hemiarthroplasty done. You are being discharged to [facility] for rehab. Please ensure you follow instructions as detailed by Surgeons. You are being discharged on apixaban (eliquis) to reduce risk of blood clots. You will be on this for 4 weeks or until full ambulation. You can hold off taking aspirin for now while on the blood thinner and resume it afterwards. Please ensure follow up with your Primary Doctor and the surgeon It was a pleasure taking care of you. Néstor Coronary Clinical Specialist Provider Instructions: ACTIVITY RECOMMENDATIONS: SELF CARE INSTRUCTIONS AFTER HIP HEMIARTHROPLASTY Until the incision and soft tissues around your hip have healed, there is a possibility that the hip prosthesis could dislocate. A. Observe the following precautions to prevent dislocation: 1. Don't bend your hip greater than 90 degrees. 2. Avoid crossing your legs or ankles while standing or lying. 3. Sit with your feet placed 6 inches apart. 4. When sitting, keep your knees below your hips. Sit on a firm surface, avoid deep, soft chairs and couches. Use an elevated toilet seat in the bathroom. 5. Don't bend over at the waist. Use a long handled shoehorn and a sock aid to help you put on your shoes and socks. A spray gunner can help you brick picker objects that are too high or too low to reach. 6. Keep car riding to a minimum for at least one month after surgery. B. Your balance may be shaky for a while. Use crutches or a walker until directed by your doctor. C. Use hand rails when walking on stairs. D. Wear low heeled shoes with non-slip soles. E. Be sure that your floors are free of things that could trip you - throw rugs, electrical cords, small objects. Avoid wet and waxed floors, especially with crutches and canes. F. Try to walk several times a day with rest periods between. G. Continue with all the exercises taught to you in the hospital. Again, make walking a part of your daily routine. SPECIAL CARE INSTRUCTIONS: VERY IMPORTANT TO READ AND REVIEW A. You may still be at risk for phlebitis and blood clots. 1. Wear surgical stockings (LUANA hose) for 2 weeks after surgery to improve circulation and reduce swelling. 2. CONTINUE YOUR APIXABAN TWICE DAILY OR DIRECTED BY YOUR PHYSICIAN B. You must take antibiotics before having dental work, bladder, bowel and other surgery. Your doctor will provide you with a permanent card to carry describing precautions. C. Call [facility] if you have a fever, redness or swelling around the incision, cloudy drainage from incision, or sudden increase in pain in your hip, not relieved by your regular pain medication. D. Please call the office at if you have any concerns or questions about your operation or recovery. * YOU MAY SHOWER, NO TUB BATHS UNTIL CLEARED BY YOUR DOCTOR. * WEAR LUANA HOSE 20 HOURS PER DAY FOR 2 WEEKS. * YOU SHOULD USE A WALKER OR CRUTCHES FOR 2-4 WEEKS. THIS WILL HELP PREVENT STRAIN ON YOUR HIP MUSCLE AND ALLOW IT TO HEAL PROPERLY. YOU MAY WEAN TO A CANE TOLERATED. * MOST PATIENTS WILL HAVE HOME NURSING FOR THERAPY. IF YOU DECIDE TO DO OUTPATIENT PHYSICAL THERAPY, PLEASE SCHEDULE THIS 3 TIMES PER WEEK. * Prevena- This is a large suction dressing covering your incision. This will help pull any excess drainage from the wound and allow your incision to heal properly. You may shower with this if you can keep the unit outside of the shower. If any bleeding or leakage is noted please call your doctor's office. This will remain on your incision for 7 days and then should be removed. This can be done yourself or by the home nursing staff if applicable. The entire unit is disposable once removed. Once removed, keep incision clean and dry. If redness or drainage is noted, please call your surgeon. . FOLLOW UP VISIT: If appointment is not already scheduled: Please call [facility] to make a follow-up appointment for 2 weeks after your surgery at . Pending Studies at Discharge: No Stand-Alone Forms: My [facility] Skilled Items Patient informed of condition?: Yes DNR: No Discharge Level of Care: Acute rehab Communicable Disease: No Discharge Prognosis: Stable Lines: None Urinary Catheter: No Medications and DC Order Prescriptions: New celecoxib [Celebrex] 200 mg Capsule 200 mg PO BID 7 Days Qty: 14 RF: 0 polyethylene glycol 3350 [Miralax] 17 gram Powder In Packet 17 g PO DAILY PRN (Reason: constipation) Qty: 7 RF: 0 sennosides-docusate sodium [Senokot-S] 8.6-50 mg Tablet 2 tab PO HS 7 Days Qty: 14 RF: 0 acetaminophen [Tylenol Extra Strength] 500 mg Tablet 1,000 mg PO Q8 7 Days Qty: 42 RF: 0 Eliquis 2.5 mg Tablet 2.5 mg PO BID 28 Days Qty: 56 RF: 0 Continued diltiazem HCl 240 mg capsule,extended release 24hr 240 mg PO QAM RF: 0 acetaminophen 650 mg Tablet Extended Release 650 mg PO Q8H RF: 0 colesevelam [WelChol] 625 mg tablet 625 mg PO QID RF: 0 glimepiride 4 mg tablet 4 mg PO QAM RF: 0 vitamin B complex Tablet 1 tab PO QAM RF: 0 hydralazine 50 mg tablet 50 mg PO QID RF: 0 pyridoxine (vitamin B6) [Vitamin B-6] 100 mg Tablet 100 mg PO QAM RF: 0 losartan-hydrochlorothiazide 50-12.5 mg tablet 1 tab PO QAM RF: 0 metformin 500 mg tablet extended release 24 hr See Rx Instructions .ROUTE .COMPLEX RF: 0 rosuvastatin 5 mg tablet 5 mg PO QAM RF: 0 Centrum Silver 0.4 mg-300 mcg- 250 mcg Tablet 1 tab PO QAM RF: 0 Caltrate + D3 Plus Minerals 300 mg-800 unit -25 mg-0.5 mg Tablet 1 tab PO QAM RF: 0 Rybelsus 3 mg tablet 3 mg PO DAILYBB RF: 0 omega-3 fatty acids Capsule 1 cap PO DAILY RF: 0 Probiotic Acidophilus 1.5 mg (250 million cell) Capsule 1.5 mg PO DAILY RF: 0 Discontinued aspirin [Aspir-81] 81 mg Tablet,Delayed Release (Dr/Ec) 81 mg PO HS RF: 0 Discharge Orders: Discharge Order (Routine); Ordered 03/09/22 Ordered By: Roselyn Barajas Admission Data Admit Date/Time: 03/05/22 12:40 Attending Provider: Roselyn Barajas I. Admit Provider: Aiden Chris Primary Care Provider: PCP,NO Other Providers: [facility] ; Aiden Chris ; Boris Granger ; Tu Way ; Marcelo Lomeli ; Alen Howard ; Anders Mariee ; Jason Vaughn ; Reece Cooley ; Karen Luther ; Tiffany Medina ; Alanna Hernandez ; Ky Benavides ; Juan Larsen.
--- NOTE | 2022-03-09 13:50 | Hospitalist Progress Note ---
Date of Service March 09, 2022 Assessment & Plan (1) Closed right hip fracture: Plan: Acute Right Hip Fracture X ray:Impacted and mildly displaced subcapital fracture of the right femur. --S/P Right hip hemiarthroplasty POD #2 Acute postoperative blood loss anemia Weightbearing as tolerated Fall precautions Pain Controlled. Last use of opioid was >48h ago. Was given senokot. Scheduled miralax and IA dulcolax Had BM later today. However, patient reports not feeling good to go to rehab today Hypophosphatemia today. Replete On Apixaban for DVT Prophylaxis. Patient has h/o DVT Will need to be on this for about 4 weeks or till full ambulation whichever is first Leukocytosis likely reactive. No fever or other signs of infection (2) HTN, goal below 140/90: Plan: Continue Cardizem, Hyzaar, Hydralazine Monitor (3) Type 2 diabetes, HbA1c goal < 7%: Plan: HbA1C 8.3 02/03/2022 Hold PO meds Continue Insulin basal and sliding scale Monitor BGs (4) Hyperlipidemia LDL goal <100: Plan: Continue rosuvastatin (5) Obesity (BMI 30-39.9): (6) DVT prophylaxis: Plan: Apixaban SCDs [facility] Admission and Anticipated Discharge Date Admission Date: March 05, 2022 Subjective 71-year-old woman with DM type II, hypertension who presented after a fall onto the right hip. Being managed for acute right hip fracture status post right hip hemiarthroplasty. Patient seen and examined this morning. Patient reports right hip pain is controlled. Reported nausea, constipation and abd discomfort today. Denies any headache, dizziness, nausea, vomiting, abdominal pain. Chest pain, cough, shortness of breath Physical Exam Constitutional: + well hydrated and + obese; no acute distress Eyes: PERRL, conjunctivae normal, anicteric sclerae ENMT: external ear and nose normal, oropharynx normal Respiratory: normal respiratory effort, lungs clear to auscultation Cardiovascular: Rate/Rhythm: regular rate and regular rhythm S1 S2 Gastrointestinal (Abdomen): normal bowel sounds, soft, nontender, no hepatosplenomegaly Musculoskeletal: Clean dressing over right hip Neurologic: PERRL, EOMI, accommodation nl, no face palsy, no dysarthria Psychiatric: A+Ox3, euthymic affect Results & Data Results & Data ([facility]) Vital Signs (Past 12 Hours) Vital Signs Temp Pulse Pulse Resp BP BP Pulse Ox 03/09/22 11:00 36.6 C 86 18 157/72 H 93 03/09/22 07:48 36.6 C 96 H 20 159/83 H 94 03/09/22 07:07 94 H 03/09/22 03:00 37 C 102 H 20 182/83 H 91 Laboratory Results Abnormal lab results 03/08/22 03/08/22 03/09/22 Range/Units 16:44 20:06 06:28 WBC 17.30 H (4.8-10.8) K/uL RBC 4.11 L (4.2-5.4) M/uL Hct 35.2 L (37-47) % Sodium (136-145) mmol/L Creatinine (0.6-1.2) mg/dl BUN/Creatinine Ratio (10-20) Glucose (70-99(Fasting)) mg/dl POC Glucose 227 H 219 H (70-99) mg/dl Phosphorus (2.5-4.9) mg/dl 03/09/22 03/09/22 03/09/22 Range/Units 06:28 07:36 11:27 WBC (4.8-10.8) K/uL RBC (4.2-5.4) M/uL Hct (37-47) % Sodium 133 L (136-145) mmol/L Creatinine 0.34 L (0.6-1.2) mg/dl BUN/Creatinine Ratio 55.9 H (10-20) Glucose 208 H (70-99(Fasting)) mg/dl POC Glucose 215 H 219 H (70-99) mg/dl Phosphorus 2.0 L (2.5-4.9) mg/dl (1) Closed right hip fracture Encounter type: initial encounter Qualified Code(s): S72.001A - Fracture of unspecified part of neck of right femur, initial encounter for closed fracture
[2022-03-09] MEDS ORDERED: POT PHOSPHATE MONOBASIC W/ SOD TAB PO ONE (15:00)
[2022-03-09] MEDS: SENNA 8.6 MG TAB PO SCH (21:14)
[2022-03-09] MEDS: DOCUSATE SODIUM/SENNA 50/8.6MG TAB PO SCH (21:16)
[2022-03-10] MEDS: ACETAMINOPHEN 500 MG TAB PO SCH (06:04)
[2022-03-10] MEDS: POLYETHYLENE (MIRALAX) 17 GM PACK PO SCH (06:05)
[2022-03-10 07:41] LABS: Hematocrit (blood only) 34.4 % (37-47); Hemoglobin 11.7 g/dL (12.0-16.0); Mean Corpuscular Hemoglobin 29.6 pg (25-34); Mean Corpuscular Volume 87.1 fL (80-100); Mean Platelet Volume 8.8 fL (7.4-10.4); Platelet Count 360 K/uL (130-400); RDW Coefficient of Variation 13.9 % (11.5-14.5); RDW Standard Deviation 44.6 fL (36.4-46.3); Red Blood Count 3.95 M/uL (4.2-5.4); White Blood Count 14.42 K/uL (4.8-10.8)
[2022-03-10 08:03] LABS: Calcium 8.2 mg/dl (8.5-10.1); Creatinine Clr Calc Pharmacy 240.6 ml/min; Est GFR (African American) 142.8 ml/min; Est GFR (Non-African American) 123.2 ml/min; Magnesium 1.6 mg/dl (1.7-2.4); Phosphorus 2.6 mg/dl (2.5-4.9); Potassium 3.6 mmol/L (3.5-5.1)
[2022-03-10] MEDS ORDERED: MAGNESIUM SULFATE / D5W 1 GM/100 ML BAG IV ONE (09:00)
[2022-03-10] MEDS: APIXABAN 2.5 MG TAB PO SCH (09:03)
[2022-03-10] MEDS: ADVANCED PROBIOTIC 1250 MG CAPSULE PO SCH (09:03)
[2022-03-10] MEDS: hydrALAZINE TAB 50 MG TAB PO SCH (09:03)
[2022-03-10] MEDS: MULTIVITAMIN TAB PO SCH (09:03)
[2022-03-10] MEDS: CeleBREX 200 MG CAP PO SCH (09:03)
[2022-03-10] MEDS: CEROVITE ADV FORMULA TAB PO SCH (09:03)
[2022-03-10] MEDS: DOCUSATE SODIUM 100 MG CAP PO SCH (09:03)
[2022-03-10] MEDS: LOSARTAN/HCTZ 50/12.5MG TAB PO SCH (09:04)
[2022-03-10] MEDS: ROSUVASTATIN CALCIUM 5 MG TAB PO SCH (09:04)
[2022-03-10] MEDS: dilTIAZem HCL 240 MG CAPCR PO SCH (09:04)
[2022-03-10] MEDS: INSULIN GLARGINE SOLOSTAR 100 UNITS/ML 3 ML PEN SC SCH (09:05)
[2022-03-10] MEDS: INSULIN ASPART PER UNIT SC SCH (09:06)
--- NOTE | 2022-03-10 09:43 | Discharge Summary ---
Date of Service March 10, 2022 Admission HPI Per Admitting Provider Patient is a 71 yo female with PMHx of DM type 2, HTN, Hyperlipidemia who presented to the ED via ambulance for concern of fall onto right hip this morning. She is from the [facility] but is in town for a wedding. She was packing the car when she stepped off of an uneven surface and fell onto her right hip. She was unable to stand/walk after the episode. She was transported to the ED and has since had XRay of the right hip which showed impacted and slightly displaced femur fx. This image was reviewed by me today. She was initially dizzy immediately after her fall, but no further dizziness. No LOC. No head injury. She caught herself slightly with her right arm but no injury or bruising. Right hip Pain is 5/10 now after dose of Morphine in the ED. She is comfortable on exam. She did take some of her medications this morning, but she did not take her glimepiride. She has not eaten yet today. Labs reviewed as well. Renal function stable. WBC count slightly elevated. Glucose 187. BP high on admission, improved with pain control. Admission Exam Per Admitting Provider Constitutional: WD/WN, vitals as above comfortable; no acute distress Eyes: PERRL, conjunctivae normal, anicteric sclerae ENMT: external ear and nose normal, oropharynx normal Neck: trachea midline, no thyromegaly Respiratory: normal respiratory effort, lungs clear to auscultation Cardiovascular: Rate/Rhythm: regular rate and regular rhythm Heart Sounds: normal S1 and normal S2; no murmur Extremities: normal capillary refill (Pulses 2+ DP and 1+ PT B/L) and + edema (trace edema RLE) Gastrointestinal (Abdomen): normal bowel sounds, soft, nontender, no hepatosplenomegaly Skin: no rashes, warm and dry Principal Diagnosis Fall Right hip fracture Status post right hip hemiarthroplasty Discharge Exam Constitutional + well hydrated and + obese; no acute distress Eyes PERRL, conjunctivae normal, anicteric sclerae ENMT external ear and nose normal, oropharynx normal Respiratory normal respiratory effort, lungs clear to auscultation Cardiovascular Rate/Rhythm: regular rate and regular rhythm S1 S2 Gastrointestinal (Abdomen) normal bowel sounds, soft, nontender, no hepatosplenomegaly Musculoskeletal Clean dressing over right hip surgical site Neurologic PERRL, EOMI, accommodation nl, no face palsy, no dysarthria Psychiatric A+Ox3, euthymic affect Discharge Data Allergies Allergy/AdvReac Type Severity Reaction Status Date / Time Penicillins Allergy Intermediate Hives Verified 03/05/22 14:41 Consultations 03/05/22 12:03 ED Decision to Admit Stat 03/05/22 13:14 Consult Orthopedic Surgery Routine 03/05/22 18:16 Consult Cardiology Routine Procedures Performed Operation Date: 03/06/22 07:50 Actual Procedures p Right Hip Hemiarthroplasty(Right) - Boris Granger DO Hospital Course (1) Closed right hip fracture: Acute Right Hip Fracture X ray:Impacted and mildly displaced subcapital fracture of the right femur. --S/P Right hip hemiarthroplasty POD #3 Pain controlled Hb was 14 on presentation, 12 preop, 11 post op Likely dilutional and post op blood loss Was started on Apixaban for DVT Prophylaxis. Patient has h/o DVT Will need to be on this for about 4 weeks or till full ambulation whichever is first (2) HTN, goal below 140/90: Continue Cardizem, losartan HCTZ, Hydralazine (3) Type 2 diabetes, HbA1c goal < 7%: HbA1C 8.3 02/03/2022 Continue home antidiabetics (4) Hyperlipidemia LDL goal <100: Continue rosuvastatin (5) Obesity (BMI 30-39.9): Total Time Total Time Spent Total Time Spent (In Minutes): 45 Total Time Includes: Examination of the Patient, Discharge Planning and Medication Reconciliation Discharge Plan Discharge Items Patient Disposition: Transfer Inpatient Rehab Fac Reason For Visit: HIP FRACTURE Discharge Diagnosis: Fall Right hip fracture Status post right hip hemiarthroplasty Activity: Per Instructions section Weightbearing: Right weightbearing Weightbearing Comment: as tolerated with walker Non-emergency contact: Surgeon Call non-emergency contact if: your pain is not controlled, your temperature is above 101.5, your wound has increased redness and your wound has increased drainage Follow-up/Referrals: Boris Granger DO [Surgeon] - (Follow up in 14 days from the day of surgery for your first wound check. ) PCP,NO [Primary Care Provider] - Diet: Carb Consistent or DM2 and Heart Healthy Addtl Attending Provider Instructions: Mrs Dickerson. You came to the hospital after a fall. You were evaluated and found to have a right hip fracture. You had right hemiarthroplasty done. You are being discharged to [facility] for rehab. Please ensure you follow instructions as detailed by Surgeons. You are being discharged on apixaban (eliquis) to reduce risk of blood clots. You will be on this for 4 weeks or until full ambulation. You can hold off taking aspirin for now while on the blood thinner and resume it afterwards. Please ensure follow up with your Primary Doctor and the surgeon It was a pleasure taking care of you. 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 A. Observe the following precautions to prevent dislocation: 1. Don't bend your hip greater than 90 degrees. 2. Avoid crossing your legs or ankles while standing or lying. 3. Sit with your feet placed 6 inches apart. 4. When sitting, keep your knees below your hips. Sit on a firm surface, avoid deep, soft chairs and couches. Use an elevated toilet seat in the bathroom. 5. Don't bend over at the waist. Use a long handled shoehorn and a sock aid to help you put on your shoes and socks. A hoeing row boss can help you picking table worker objects that are too high or too low to reach. 6. Keep car riding to a minimum for at least one month after surgery. B. Your balance may be shaky for a while. Use crutches or a walker until directed by your doctor. C. Use hand rails when walking on stairs. D. Wear low heeled shoes with non-slip soles. E. Be sure that your floors are free of things that could trip you - throw rugs, electrical cords, small objects. Avoid wet and waxed floors, especially with crutches and canes. F. Try to walk several times a day with rest periods between. G. Continue with all the exercises taught to you in the hospital. Again, make walking a part of your daily routine. SPECIAL CARE INSTRUCTIONS: VERY IMPORTANT TO READ AND REVIEW A. You may still be at risk for phlebitis and blood clots. 1. Wear surgical stockings (LUANA hose) for 2 weeks after surgery to improve circulation and reduce swelling. 2. CONTINUE YOUR APIXABAN TWICE DAILY OR DIRECTED BY YOUR PHYSICIAN B. You must take antibiotics before having dental work, bladder, bowel and other surgery. Your doctor will provide you with a permanent card to carry describing precautions. C. Call [facility] [place] if you have a fever, redness or swelling around the incision, cloudy drainage from incision, or sudden increase in pain in your hip, not relieved by your regular pain medication. D. Please call the office at if you have any concerns or questions about your operation or recovery. * YOU MAY SHOWER, NO TUB BATHS UNTIL CLEARED BY YOUR DOCTOR. * WEAR LUANA HOSE 20 HOURS PER DAY FOR 2 WEEKS. * YOU SHOULD USE A WALKER OR CRUTCHES FOR 2-4 WEEKS. THIS WILL HELP PREVENT STRAIN ON YOUR HIP MUSCLE AND ALLOW IT TO HEAL PROPERLY. YOU MAY WEAN TO A CANE TOLERATED. * MOST PATIENTS WILL HAVE HOME NURSING FOR THERAPY. IF YOU DECIDE TO DO OUTPATIENT PHYSICAL THERAPY, PLEASE SCHEDULE THIS 3 TIMES PER WEEK. * Prevena- This is a large suction dressing covering your incision. This will help pull any excess drainage from the wound and allow your incision to heal properly. You may shower with this if you can keep the unit outside of the shower. If any bleeding or leakage is noted please call your doctor's office. This will remain on your incision for 7 days and then should be removed. This can be done yourself or by the home nursing staff if applicable. The entire unit is disposable once removed. Once removed, keep incision clean and dry. If redness or drainage is noted, please call your surgeon. . FOLLOW UP VISIT: If appointment is not already scheduled: Please call [facility] to make a follow-up appointment for 2 weeks after your surgery at . Pending Studies at Discharge: No Stand-Alone Forms: My [facility] Skilled Items Patient informed of condition?: Yes DNR: No Discharge Level of Care: Acute rehab Communicable Disease: No Discharge Prognosis: Stable Lines: None Urinary Catheter: No Medications and DC Order Prescriptions: New celecoxib [Celebrex] 200 mg Capsule 200 mg PO BID 7 Days Qty: 14 RF: 0 polyethylene glycol 3350 [Miralax] 17 gram Powder In Packet 17 g PO DAILY PRN (Reason: constipation) Qty: 7 RF: 0 sennosides-docusate sodium [Senokot-S] 8.6-50 mg Tablet 2 tab PO HS 7 Days Qty: 14 RF: 0 acetaminophen [Tylenol Extra Strength] 500 mg Tablet 1,000 mg PO Q8 7 Days Qty: 42 RF: 0 Eliquis 2.5 mg Tablet 2.5 mg PO BID 28 Days Qty: 56 RF: 0 Continued diltiazem HCl 240 mg capsule,extended release 24hr 240 mg PO QAM RF: 0 acetaminophen 650 mg Tablet Extended Release 650 mg PO Q8H RF: 0 colesevelam [WelChol] 625 mg tablet 625 mg PO QID RF: 0 glimepiride 4 mg tablet 4 mg PO QAM RF: 0 vitamin B complex Tablet 1 tab PO QAM RF: 0 hydralazine 50 mg tablet 50 mg PO QID RF: 0 pyridoxine (vitamin B6) [Vitamin B-6] 100 mg Tablet 100 mg PO QAM RF: 0 losartan-hydrochlorothiazide 50-12.5 mg tablet 1 tab PO QAM RF: 0 metformin 500 mg tablet extended release 24 hr See Rx Instructions .ROUTE .COMPLEX RF: 0 rosuvastatin 5 mg tablet 5 mg PO QAM RF: 0 Centrum Silver 0.4 mg-300 mcg- 250 mcg Tablet 1 tab PO QAM RF: 0 Caltrate + D3 Plus Minerals 300 mg-800 unit -25 mg-0.5 mg Tablet 1 tab PO QAM RF: 0 Rybelsus 3 mg tablet 3 mg PO DAILYBB RF: 0 omega-3 fatty acids Capsule 1 cap PO DAILY RF: 0 Probiotic Acidophilus 1.5 mg (250 million cell) Capsule 1.5 mg PO DAILY RF: 0 Discontinued aspirin [Aspir-81] 81 mg Tablet,Delayed Release (Dr/Ec) 81 mg PO HS RF: 0 Discharge Orders: Discharge Order (Routine); Ordered 03/10/22 Ordered By: Roselyn Barajas Admission Data Admit Date/Time: 03/05/22 12:40 Attending Provider: Roselyn Barajas I. Admit Provider: Aiden Chris Primary Care Provider: PCP,NO Other Providers: [facility] ; Aiden Chris ; Boris Granger ; Tu Way ; Marcelo Lomeli ; Alen Howard ; Anders Mariee ; Jason Vaughn. ; Reece Cooley ; Karen Luther ; Tiffany Medina ; Alanna Hernandez. ; Ky Benavides ; Juan Larsen. Other Interventions: Discharge Summary Assessment (RN) Last Done: 03/10/22 10:49
== END 2022-03-10 11:12 | DRG 522 ==
LOC: ED 09:41 → 3E 12:40 → SUATTDRO 12:40 → 3E 13:41 → 2N 18:48